=== PATIENT | male | born 1945 | race Caucasian/White ===

== ENCOUNTER 2017-03-19 07:35 | Inpatient (IN) | payer MEDICARE, OTHER ==
[~2017-03-19] VITALS: Ht 182.9 cm; Wt 109.3 kg
--- NOTE | 2017-03-19 07:45 | NUR ---
LINE STARTED ON R AC G 20, BLOOD DRAWN AND SENT TO LAB
--- NOTE | 2017-03-19 07:50 | NUR ---
RESPIRATORY THERAPIST AT BEDSIDE TO PLACE PT ON BIPAP SETTINGS: IPAP:25 EPAP:5 FIO2:40%
--- NOTE | 2017-03-19 07:51 | NUR ---
ANJALI MCDONALD EMT AT BEDSIDE FOR EKG
[2017-03-19 07:56] VITALS: BP 132/61
--- NOTE | 2017-03-19 08:06 | NUR ---
BIPAP SETTINGS: 25/5-12-30%
[2017-03-19 08:09] LABS: BASOPHILS % (AUTO) 0.2 % (0.0-2.0); EOSINOPHILS # (AUTO) 0.1 /CMM (0.0-0.7); EOSINOPHILS % (AUTO) 1.4 % (0.0-6.0); HEMATOCRIT 30 % (39-51); HEMOGLOBIN 9.1 g/dL (13.5-17.5); LYMPHOCYTES # (AUTO) 0.6 /CMM (0.8-4.8); LYMPHOCYTES % (AUTO) 9.2 % (20.0-44.0); MEAN CORPUSCULAR HEMOGLOBIN 21 PG (26.0-33.0); MEAN CORPUSCULAR HGB CONC 30 g/dl (31.0-36.0); MEAN CORPUSCULAR VOLUME 70 fL (80-96); MONOCYTES # (AUTO) 0.3 /CMM (0.1-1.30); MONOCYTES % (AUTO) 5.4 % (2.0-12.0); NEUTROPHILS # (AUTO) 5.3 /CMM (1.8-8.9); NEUTROPHILS % (AUTO) 83.8 % (43.0-81.0); PLATELET COUNT (AUTO) 230 /CMM (150-450); RDW COEFFICIENT OF VARIATION 20.2 (11.5-15.0); RED BLOOD CELL COUNT(AUTO) 4.32 MIL/uL (4.5-6.0); WHITE BLOOD COUNT (AUTO) 6.3 K/uL (4.3-11.0)
[2017-03-19] MEDS ORDERED: CARV12.52 PO (08:11)
[2017-03-19] MEDS ORDERED: TIOT18CA3 IH (08:11)
[2017-03-19] MEDS ORDERED: ALBU2.5V38 IH (08:11)
[2017-03-19] MEDS ORDERED: INSU100V7 SQ (08:11)
[2017-03-19] MEDS ORDERED: FLUT16SP16 NS (08:11)
[2017-03-19] MEDS ORDERED: RIVA10TA PO (08:11)
[2017-03-19] MEDS ORDERED: FLUT1DIS5 IH (08:11)
[2017-03-19] MEDS ORDERED: LISI10TA5 PO (08:11)
[2017-03-19] MEDS ORDERED: FURO-145 PO (08:11)
[2017-03-19] MEDS ORDERED: ATOR40TA PO (08:11)
[2017-03-19 08:21] LABS: CALCIUM, SERUM 8.4 mg/dL (8.5-10.1); CREATININE 1.2 mg/dL (0.6-1.3); POTASSIUM 4.7 mmol/L (3.5-5.1)
[2017-03-19 08:29] LABS: TROPONIN I 0.068 ng/mL (0.00-0.056)
[2017-03-19 08:34] LABS: ALBUMIN 3.5 g/dL (3.4-5.0); BILIRUBIN,DIRECT 0.2 mg/dL (0.0-0.2); BILIRUBIN,TOTAL 0.5 mg/dL (0.2-1.0); TOTAL PROTEIN, SERUM 6.9 g/dL (6.4-8.2)
--- NOTE | 2017-03-19 08:56 | NUR ---
Patient is resting comfortably in bed. VSS. All needs attended.
--- NOTE | 2017-03-19 09:04 | NUR ---
bipap dc'ed per dr portillo. pt's vs wnl. sating 99% on O2 2 l.
[2017-03-19 09:15] LABS: BAND % (MANUAL) 1 % (0.0-5.0); LYMPHOCYTES % (MANUAL) 7 % (16-48); MONOCYTES % (MANUAL) 1 % (0-11.0); NEUTROPHILS % (MANUAL) 91 (42-76)
--- NOTE | 2017-03-19 10:02 | NUR ---
Patient is resting comfortably in bed. VSS.
[2017-03-19 11:00] VITALS: BP 114/82
--- NOTE | 2017-03-19 11:00 | NUR ---
RN NOTES ADMITTED A 71Y/O M FROM ER WITH DX OF CHF, TRANSPORTED VIA STRETCHER ACCOMPANIED BY RN AND EMT. AWAKE ALERT ORIENTEDX3 ABLE TO COMMUNICATE NEEDS. ON O2@2LPM VIA NC, SATING 96%. TELEBOX ATTACHED NOTED SR ON TELE MONITOR HR 97 AT THIS TIME. VS TAKEN AND RECORDED. BODY CHECK DONE, NO MAJOR SKIN ISSUES NOTED. ORIENTED PT TO UNIT AND CALL LIGHT USE. URINAL PROVIDED AT BEDSIDE. HOB ELEVATED. CALL LIGHT WITHIN REACH WILL CONT TO MONITOR
[2017-03-19 12:03] LABS: IRON, SERUM 18 ug/dl (50-175); TOTAL IRON BINDING CAPACITY 373 ug/dl (250-450)
--- NOTE | 2017-03-19 17:45 | NUR ---
RN NOTES DR WEST AWARE OF LATEST TROPONIN 0.7, NO NEW ORDER GIVEN AT THIS TIME.
--- NOTE | 2017-03-19 19:30 | NUR ---
BRADLEY RN INITIAL NOTE RECEIVED REPORT FROM AISHA PAIZ. PT UP IN BED. PT IS UNKEMPT. APPEARS DYSPNIC WITH SPEECH, ON 2L NC. BOWEL SOUNDS PRESENT. PULSES PRESENT. IV PATENT AND INTACT. URINAL AT BEDSIDE. BED IN LOW LOCKED POSITION, CALL LIGHT WITHIN REACH. WILL CONTINUE TO MONITOR.
[2017-03-19 20:00] VITALS: BP 110/66
--- NOTE | 2017-03-19 22:10 | NUR ---
BRADLEY RN PT NOTED TO BE WITH DIFFICULTY BREATHING, ACCESSORY MUSCLE USE RR 38-40. PT SAYS HE FEELS HIS CHEST IS TIGHT AND SECRETIONS ARE DRY. ABG ORDERED.
[2017-03-19 22:38] LABS: ABG BASE EXCESS -3.1 mmol/L; ABG OXYGEN SATURATION 93.9 % (92.0-98.5); ABG PCO2 33.6 mmHg (35.0-45.0); ABG PH 7.412 (7.350-7.450); ABG PO2 74.1 mmHg (75.0-100.0); AaDO2 85.9 mmHg; COHb 0.8 % (0.5-1.5); MetHb 0.6 % (0.0-1.5); O2Hb 92.6 % (94.0-97.0); SITE, ABG Right Radial
--- NOTE | 2017-03-19 22:40 | NUR ---
BRADLEY RN PER RT- ABG NORMAL. WILL CALL AND NOTIFY DR POWELL AND REQUEST ORDERS. WILL CONTINUE TO MONITOR
--- NOTE | 2017-03-19 23:43 | NUR ---
BRADLEY RN DR UREÑA RETUTRNED CALLED. INFORMED HIM OF PATIENTS PRESENTATION. MENTIONED PT HAS A DRY PERSISTENT COUGH AND ON LISINOPRIL. PER DR UREÑA PLEASE CONTINUE LISINOPRIL AND GIVE ATIVAN 0.5MG Q6HR. WILL CONTINUE TO MONITOR.
[2017-03-20] VITALS: BP 100/52
--- NOTE | 2017-03-20 03:33 | NUR ---
BRADLEY RN REPORT GIVEN TO MELISSA FOR RITA. PT RESTING IN BED. ACCESSORY MUSCLE USE PRESENT, RR 24.
[2017-03-20 04:00] VITALS: BP 92/42
--- NOTE | 2017-03-20 07:00 | NUR ---
RN CLOSING NOTES PATIENT IN BED, AWAKE AND ALERT, ORIENTED. PATIENT STILL NOTED TO BE TACHYPNEIC WITH RR OF 24, ON 2LPM OF O2 VIA NC. PATIENT ENCOURAGED WITH REST PERIODS WITH ACTIVITY, ASSISTED WITH ADLS NEEDED. PROVIDED WITH REASSURANCE NEEDED. SAFETY AND COMFORT ENSURED. BED IN LOW AND LOCKED POSITION. CALL LIGHT IN REACH. NEEDS ANTICIPATED AND MET. ENDORSED ACCORDINGLY FOR CONTINUITY OF CARE.
[2017-03-20 07:16] LABS: EOSINOPHILS % (AUTO) 0.2 % (0.0-6.0); HEMATOCRIT 29 % (39-51); HEMOGLOBIN 8.8 g/dL (13.5-17.5); LYMPHOCYTES # (AUTO) 0.3 /CMM (0.8-4.8); LYMPHOCYTES % (AUTO) 3.6 % (20.0-44.0); MEAN CORPUSCULAR HEMOGLOBIN 21 PG (26.0-33.0); MEAN CORPUSCULAR HGB CONC 31 g/dl (31.0-36.0); MEAN CORPUSCULAR VOLUME 69 fL (80-96); MONOCYTES # (AUTO) 0.4 /CMM (0.1-1.30); MONOCYTES % (AUTO) 4.8 % (2.0-12.0); NEUTROPHILS # (AUTO) 6.6 /CMM (1.8-8.9); NEUTROPHILS % (AUTO) 91.4 % (43.0-81.0); PLATELET COUNT (AUTO) 209 /CMM (150-450); RDW COEFFICIENT OF VARIATION 19.6 (11.5-15.0); WHITE BLOOD COUNT (AUTO) 7.3 K/uL (4.3-11.0)
[2017-03-20 08:00] VITALS: BP 119/83
[2017-03-20 08:24] LABS: CREATININE 1.2 mg/dL (0.6-1.3); MAGNESIUM 2.1 mg/dL (1.8-2.4); PHOSPHORUS 4.1 mg/dL (2.5-4.9); POTASSIUM 5.6 mmol/L (3.5-5.1)
[2017-03-20 09:47] LABS: BAND % (MANUAL) 15 % (0.0-5.0); LYMPHOCYTES % (MANUAL) 7 % (16-48); MONOCYTES % (MANUAL) 6 % (0-11.0); NEUTROPHILS % (MANUAL) 72 (42-76)
[2017-03-20 12:00] VITALS: BP 106/66
[2017-03-20 16:00] VITALS: BP 108/65
--- NOTE | 2017-03-20 19:00 | NUR ---
RN NOTE PT REMAINED STABLE, ALL MEDS GIVEN, NEEDS METSPONGE BATH GIVEN, ADLS ASSISTED, PT AMBULATED TO BATHROOM, SAFETY MEASURES IMPLEMENTED, PT REMAINED STABLE THROUGHOUT SHIFT, WILL ENDORSE TO SHAPING MACHINE OPERATOR NURSE.
--- NOTE | 2017-03-20 19:20 | NUR ---
BRADLEY RN INITIAL NOTE RECEIVED REPORT FROM CLIF PAIZ. PT IN BED. A/A/O X4. LUNG SOUNDS CLEAR, PT HAS A DRY COUGH. ON 2L NC WITH GOOD SATURATION. BOWEL SOUNDS PRESENT. CONTINENT WITH BRP AND URINAL AT BEDSIDE. PULSES PRESENT. IV PATENT AND INTACT WITH IV FLUIDS RUNNING. BED IN LOW LOCKED POSITION. CALL LIGHT WITHIN REACH. WILL CONTINUE TO MONITOR.
[2017-03-20 20:00] VITALS: BP 119/63
--- NOTE | 2017-03-20 23:44 | NUR ---
SANDBLAST OR SHOTBLAST EQUIPMENT TENDER REPORT GIVEN DALTON PAIZ FOR RITA. PT STABLE AT THIS TIME. Addendum: 03/20/17 at 2346 by GERONIMO VAZQUEZ RN NOTE ON WRONG PT
[2017-03-21] VITALS: BP_SYST 104; BP_SYST 117; BP_DIAS 68; BP_DIAS 69
[2017-03-21 04:00] VITALS: BP 108/72
--- NOTE | 2017-03-21 07:15 | NUR ---
BRADLEY NOTE- RECEIVED PT A/O X4. ON ROOM AIR, RESPIRATIONS EVEN AND UNLABORED, NO SOB OR DISTRESS PRESENT. TELE MONITOR REVEALS SINUS RHYTHM, HR= 91. LEFT HAND 22G HL FLUSHED, PATENT AND INTACT RUNNING NS @ 100 MLS/HR. IV SITE FREE OF REDNESS, SWELLING AND INFLAMMATION. SAFETY MEASURES TAKEN: BED LOCKED AND IN LOW POSITION, SIDE RAILS UP X2, BED ALARM ON AND CALL LIGHT WITHIN REACH, WILL CONTINUE TO MONITOR.
[2017-03-21 07:17] LABS: EOSINOPHILS # (AUTO) 0.3 /CMM (0.0-0.7); EOSINOPHILS % (AUTO) 2.3 % (0.0-6.0); HEMATOCRIT 30 % (39-51); HEMOGLOBIN 9.1 g/dL (13.5-17.5); LYMPHOCYTES # (AUTO) 0.3 /CMM (0.8-4.8); MEAN CORPUSCULAR HEMOGLOBIN 21 PG (26.0-33.0); MEAN CORPUSCULAR HGB CONC 30 g/dl (31.0-36.0); MEAN CORPUSCULAR VOLUME 69 fL (80-96); MONOCYTES # (AUTO) 0.6 /CMM (0.1-1.30); MONOCYTES % (AUTO) 5.1 % (2.0-12.0); NEUTROPHILS # (AUTO) 9.8 /CMM (1.8-8.9); NEUTROPHILS % (AUTO) 89.6 % (43.0-81.0); PLATELET COUNT (AUTO) 250 /CMM (150-450); RDW COEFFICIENT OF VARIATION 20.1 (11.5-15.0); RED BLOOD CELL COUNT(AUTO) 4.36 MIL/uL (4.5-6.0); WHITE BLOOD COUNT (AUTO) 10.9 K/uL (4.3-11.0)
[2017-03-21 07:32] LABS: ALBUMIN 3.3 g/dL (3.4-5.0); BILIRUBIN,TOTAL 0.3 mg/dL (0.2-1.0); CREATININE 1.3 mg/dL (0.6-1.3); MAGNESIUM 2.3 mg/dL (1.8-2.4); PHOSPHORUS 4.9 mg/dL (2.5-4.9); POTASSIUM 4.7 mmol/L (3.5-5.1); TOTAL PROTEIN, SERUM 6.5 g/dL (6.4-8.2)
[2017-03-21 07:33] LABS: TROPONIN I 0.062 ng/mL (0.00-0.056)
[2017-03-21 08:00] VITALS: BP 117/71
[2017-03-21 09:03] LABS: BAND % (MANUAL) 2 % (0.0-5.0); EOSINOPHILS % (MANUAL) 1 % (0-4); LYMPHOCYTES % (MANUAL) 1 % (16-48); MONOCYTES % (MANUAL) 3 % (0-11.0); NEUTROPHILS % (MANUAL) 93 (42-76)
--- NOTE | 2017-03-21 10:00 | NUR ---
MS NOTE- PT C/O MILD SOB, PLACED ON 2L NC, SATURATING 96%. WILL CONTINUE TO MONITOR.
[2017-03-21 12:00] VITALS: BP 109/65
[2017-03-21 16:00] VITALS: BP 101/73
--- NOTE | 2017-03-21 19:10 | NUR ---
RN NOTES PATIENT AWAKE SITTING ON BED WATCHING TV AOX4 ABLE TO MAKE KNOWN NEEDS. AFEBRILE. NO RESP DISTRESS O2 2LPM VIA NC TOLERATED WELL WITH SATURATION 94%. PT IS AMBULATORY ABLE TO USED URINAL. ABLE TO USED BATHROOM FOR BOWEL. IV SITE ON LEFT HAND G 22 INTACT AND PATENT. CALL LIGHT KEPT WITHIN EASY REACH. WILL REMINDED TO USED WHEN NEEDED HELP/ASSISTANCE. KEPT OT CLEAN AND DRY.WILL CONTINUE TO MONITOR.
[2017-03-21 20:00] VITALS: BP 79/57
--- NOTE | 2017-03-21 21:47 | NUR ---
RN NOTES CALLED DR. POWELL INFORMED REGARDING PATIENT BP 79/57 REPEATED AFTER HOUR 79/53 MMHG. SATURATION 94%. PT IS ASYMPTOMATIC. WITH ORDER TO GIVE NS 500ML BOLUS AND REFER IT TO MD IN AM.
[2017-03-22 04:00] VITALS: BP 115/68
--- NOTE | 2017-03-22 07:02 | NUR ---
RN NOTES PATIENT ASLEEP WELL ON BED WOKE UP WHEN URINATING. NO ACUTE RESP. DISTRESS TOLERATED O2LPM VIA NC. NO COMPLAINED OF SOB. CONTINUE PLAN OF CARE. VS WNL AFTER GIVING IVF 500 ML. ASSISTED PROVIDED IN ADLS. KEPT PT CLEAN AND DRY. CALL LIGHT PROMPTLY ATTENDED. WILL ENDORSED CONTINUITY OF CARE TO AM NURSE.
[2017-03-22 07:24] LABS: EOSINOPHILS # (AUTO) 0.1 /CMM (0.0-0.7); EOSINOPHILS % (AUTO) 0.9 % (0.0-6.0); HEMATOCRIT 30 % (39-51); HEMOGLOBIN 9.2 g/dL (13.5-17.5); LYMPHOCYTES # (AUTO) 0.8 /CMM (0.8-4.8); LYMPHOCYTES % (AUTO) 8.6 % (20.0-44.0); MEAN CORPUSCULAR HEMOGLOBIN 21 PG (26.0-33.0); MEAN CORPUSCULAR HGB CONC 30 g/dl (31.0-36.0); MEAN CORPUSCULAR VOLUME 70 fL (80-96); MONOCYTES # (AUTO) 0.7 /CMM (0.1-1.30); MONOCYTES % (AUTO) 8.4 % (2.0-12.0); NEUTROPHILS # (AUTO) 7.2 /CMM (1.8-8.9); NEUTROPHILS % (AUTO) 82.1 % (43.0-81.0); PLATELET COUNT (AUTO) 223 /CMM (150-450); RDW COEFFICIENT OF VARIATION 20.1 (11.5-15.0); RED BLOOD CELL COUNT(AUTO) 4.34 MIL/uL (4.5-6.0); WHITE BLOOD COUNT (AUTO) 8.8 K/uL (4.3-11.0)
--- NOTE | 2017-03-22 07:50 | NUR ---
HOMICIDE DETECTIVE INITIAL NOTE PT IN BED. A/O X3. LUNG SOUNDS CLEAR, PT CURRENTLY RECEIVING BREATHING TREATMENT . ON 2L NC WITH GOOD SATURATION. BOWEL SOUNDS PRESENT. CONTINENT WITH BRP AND URINAL AT BEDSIDE. PULSES PRESENT. IV PATENT AND INTACT WITH IV FLUIDS RUNNING. BED IN LOW LOCKED POSITION. CALL LIGHT WITHIN REACH. RN WILL CONTINUE TO MONITOR THROUGHOUT THE DAY .
[2017-03-22 07:57] LABS: CALCIUM, SERUM 8.8 mg/dL (8.5-10.1); CREATININE 1.1 mg/dL (0.6-1.3); MAGNESIUM 2.3 mg/dL (1.8-2.4); PHOSPHORUS 4.1 mg/dL (2.5-4.9); POTASSIUM 4.6 mmol/L (3.5-5.1)
[2017-03-22 08:00] VITALS: BP 99/59
[2017-03-22 08:20] LABS: BAND % (MANUAL) 1 % (0.0-5.0); EOSINOPHILS % (MANUAL) 1 % (0-4); LYMPHOCYTES % (MANUAL) 9 % (16-48); MONOCYTES % (MANUAL) 7 % (0-11.0); NEUTROPHILS % (MANUAL) 82 (42-76)
--- NOTE | 2017-03-22 13:00 | NUR ---
RN NOTE RN SPOKE WITH PHARMACY IN REGARDS TO NEED FOR PATIENT GO- LYTLY STILL WAING ON MEDICATION ADMINISTRATION ,
--- NOTE | 2017-03-22 17:26 | NUR ---
RN NOTE RN SPOKE WITH PHARMACY IN REGARDS TO NEED FOR PATIENT GO- LYTLY STILL AWAITING MEDICATION ADMINISTRATION. PHARMACY STATES THE SENT MEDICATION HOWEVER RN NEVER RECEIVED MEDICATION RN STILL AWAITING CURRENTLY
--- NOTE | 2017-03-22 18:27 | NUR ---
GENERAL CLERK END OF SHIFT NOTE PT IN BED. A/O X3. DRINKING GO LYTLY PAT LUNG SOUNDS CLEAR, PT CURRENTLY RECEIVING BREATHING TREATMENT . ON 2L NC WITH GOOD SATURATION. BOWEL SOUNDS PRESENT. CONTINENT WITH BRP AND URINAL AT BEDSIDE 2000 CC OF FLUID TODAY. PT PULSES PRESENT. PATIENT ELIQUES HELD DUE TO EGD, AND COLONOSCOPY IN THE AM , ADONIAN PAGE TO NOTIFY OF THIS AND TO RECIEVE AND ORDER TO HOLD MEDICATION . IV PATENT AND INTACT WITH IV SL. BED IN LOW LOCKED POSITION. CALL LIGHT WITHIN REACH. RN WILL ENDORSE CARE FOR PM RN
--- NOTE | 2017-03-22 19:05 | NUR ---
RN NOTES PATIENT SITTING WHILE WATCHING TV ON BED AOX4 ABLE TO MAKE KNOWN NEEDS. NO RESP DISTRESS TOLERATED WELL WITH SATURATION 92% IN RA ENCOURAGED TO PLACED O2 VIA NC PT STATED THAT HHIS NOSE FEELS SO DRY WHEN HE PUT IT ON HUMIDIFIER PLACED RT ON BED SIDE EDUCATED PATIENT REGARDING THE USED OF HUMIDIFIER AND O2 TO HIS BODY. ENCOURAGED TO DRINK GOLYTELY EDUCATED REGARDING THE COLONOSCOPY AND EGD PROCEDURE PROCEDURE PT IS AMBULATORY ABLE TO USED URINAL. VERBALIZED UNDERSTANDING BUT EASILY FORGETS.IV SITE ON LEFT HAND G 22 INTACT AND PATENT. CALL LIGHT KEPT WITHIN EASY REACH. REMINDED TO USED WHEN NEEDED HELP/ASSISTANCE. KEPT PT CLEAN AND DRY.WILL CONTINUE TO MONITOR.
[2017-03-22 20:00] VITALS: BP 125/63
[2017-03-22 20:03] VITALS: BP 125/63
--- NOTE | 2017-03-22 22:23 | NUR ---
RN NOTES PATIENT ASLEEP AT THIS TIME. WOKE UP AND ENCOURAGED TO DRINK MORE GOLYTELY. PATIENT DRINK 1 MORE CUP ANS SAID THAT IT IS HIS LAST DRINK. EDUCATED PATIENT ABOUT THE PROCEDURE FOR THE SECOND TIME. PATIENT AWARE AND STILL REFUSED. WILL CONTINUE TO OFFER.
--- NOTE | 2017-03-22 23:00 | NUR ---
RN NOTES PATIENT USED URINAL, OFFERED AND ENCOURAGED TO DRINK MORE GOLYTELY, PT STILL REFUSED TO TAKE IT INSPITE OF EXPLAINING REGARDING THE PROCEDURE AND PATIENT DIDN'T DO ANY BOWEL YET AT THIS TIME. WILL CONTINUE TO MONITOR AND ENCOURAGED TO DRINK.
[2017-03-23 04:00] VITALS: BP 109/77
[2017-03-23 04:24] VITALS: BP 109/77
--- NOTE | 2017-03-23 06:52 | NUR ---
RN NOTES PT SITTING ON BED. WITH BREATHING TX GIVEN EARLY DUE TO UNABLE TO SPIT OUT SECRETION. NO SIGNIFICANT CHANGES SHOWS. AFEBRILE. ASSISTED TO THE BATHROOM WITH 2XL AMOUNT OF BROWNISH LIQUID STOOL . PT IS FOR EGD AND COLONOSCOPY PROCEDURE TODAY AT 2PM UNDER DR. TEJADA PATIENT IS AWARE. KEPT PT CLEAN AND DRY. ALL NEEDS ATTENDED. WILL ENDORSED CONTINUITY OF CARE TO AM NURSE.
[2017-03-23 07:23] LABS: EOSINOPHILS % (AUTO) 0.3 % (0.0-6.0); HEMATOCRIT 32 % (39-51); HEMOGLOBIN 9.6 g/dL (13.5-17.5); LYMPHOCYTES # (AUTO) 0.9 /CMM (0.8-4.8); MEAN CORPUSCULAR HEMOGLOBIN 21 PG (26.0-33.0); MEAN CORPUSCULAR HGB CONC 30 g/dl (31.0-36.0); MEAN CORPUSCULAR VOLUME 70 fL (80-96); MONOCYTES % (AUTO) 10.3 % (2.0-12.0); NEUTROPHILS # (AUTO) 7.6 /CMM (1.8-8.9); NEUTROPHILS % (AUTO) 80.4 % (43.0-81.0); PLATELET COUNT (AUTO) 256 /CMM (150-450); RDW COEFFICIENT OF VARIATION 20.3 (11.5-15.0); RED BLOOD CELL COUNT(AUTO) 4.54 MIL/uL (4.5-6.0); WHITE BLOOD COUNT (AUTO) 9.5 K/uL (4.3-11.0)
--- NOTE | 2017-03-23 07:26 | NUR ---
RN NOTES CALLED AND INFORMED DR. TEJADA REGARDING PATIENT OUTPUT AT THIS TIME. PER MD OK TO CONTINUE PREP UNTIL 11AM AND WITH NEW MEDS ORDER OF CITRATE 300 ML AND 2 FLEET ENEMA. NOTED ORDERS. WILL ENDORSED TO AM SHIFT
[2017-03-23 07:30] LABS: INR 1.05 (0.87-1.13); PROTHROMBIN TIME 11.3 SECS (9.5-12.7)
[2017-03-23 07:36] LABS: CALCIUM, SERUM 8.8 mg/dL (8.5-10.1); CREATININE 1.1 mg/dL (0.6-1.3); POTASSIUM 4.8 mmol/L (3.5-5.1)
[2017-03-23 08:00] VITALS: BP_SYST 111; BP_SYST 132; BP_DIAS 70; BP_DIAS 91
[2017-03-23 09:46] LABS: BAND % (MANUAL) 1 % (0.0-5.0); LYMPHOCYTES % (MANUAL) 6 % (16-48); MONOCYTES % (MANUAL) 7 % (0-11.0); NEUTROPHILS % (MANUAL) 86 (42-76)
[2017-03-23 16:00] VITALS: BP 115/88
[2017-03-23 20:00] VITALS: BP 132/75
--- NOTE | 2017-03-23 20:00 | NUR ---
RN NOTES RECEIVED PATIENT IN BED IN RM 115, AWAKE WITH NO COMPLAINTS OF PAIN OR DISCOMFORT. ALERT AND ORIENTED. NOTED WITH CONGESTION. ELEVATED HEAD OF BED. TRANSFERRED TO ROOM 120-2 SAFELY. VERBALLY ABLE TO COMMUNICATE NEEDS. AMBULATORY. CONTINENT OF BOWEL AND BLADDER FUNCTION. WILL CONTINUE TO MONITOR.
[2017-03-24 04:00] VITALS: BP 123/79
--- NOTE | 2017-03-24 07:00 | NUR ---
RN CLOSING NOTES IN BED, AWAKE WITH NO DISTRESS NOTED. ALERT AND ORIENTED. AMBULATORY. WALKS ALONG THE HALLWAY. NO COMPLAINT OF PAIN OR DISCOMFORT. WANTING TO BE DISCHARGED IN AM. NO SIGNIFICANT CHANGE OF CONDITION. KEPT CLEAN AND DRY. WILL ENDORSE TO AM SHIFT FOR CONTINUITY OF CARE
--- NOTE | 2017-03-24 07:30 | NUR ---
RN NOTES RECEIVED PATIENT IN BED ALERT, AWAKE, ORIENTED X3 WITH BREATHING NORMAL, EVEN AND UNLABORED. NO SOB NOTED. ON 2L O2 VIA NC, SATURATING WELL. NO ACUTE DISTRESS NOTED. IV L HAND IS PATENT AND INTACT, NO INFILTRATION NOTED. BOWEL SOUND PRESENT. PULSES PRESENT. PULSES PRESENT. SAFETY MEASURE OBSERVED. CALL LIGHT WITH IN REACH. WILL CONT TO MONITOR.
[2017-03-24 08:00] VITALS: BP 112/73
[2017-03-24 16:00] VITALS: BP 103/72
--- NOTE | 2017-03-24 19:14 | NUR ---
RN NOTES PATIENT ENDORSED TO NEXT SHIFT IN STABLE CONDITION FOR CONTINUITY OF CARE. NO SGNIFICANT CHANGES NOTED. KEPT CLEAN, DRY AND COMFORTABLE. ALL NEEDS ATTENDED. CALL LIGHT WITH IN REACH. WILL CONT TO MONITOR.
[2017-03-24 20:00] VITALS: BP 104/66
--- NOTE | 2017-03-24 20:00 | NUR ---
RN NOTES PATIENT IN BED WATCHING TV WITH NO DISTRESS NOTED. BREATHING EVEN AND UNLABORED. ON 02 VIA NASAL CANNULA AT 2LPM. NO COMPLAINT OF PAIN OR DISCOMFORT. ALERT AND ORIENTED, VERBALLY ABLE TO COMMUNICATE NEEDS. AMBULATORY. CONTINENT OF BOWEL AND BLADDER FUNCTION. WILL CONTINUE TO MONITOR.
[2017-03-25] VITALS: BP 100/58
--- NOTE | 2017-03-25 02:56 | NUR ---
RN NOTES CAME AND INQUIRED ABOUT DILANTIN. ACCORDING TO DILANTIN AND KEPPRA WERE GIVEN AT THE FACILITY, ASKING WHY DILANTIN WAS NOT GIVEN HERE AND ONLY KEPPRA. CALLED MD INSTRUCTIONAL DESIGN CONSULTANT DR. VALDEZ, RELAYED CONCERN OF THE AND ORDERED TO GIVE DILANTIN THE SAME DOSE AND FREQUENCY GIVEN AT THE FACILITY. NOTED AND CARRIED OUT. INFORMED OF THE DOCTOR'S ORDER. IS WORRIED IT MIGHT BE TOO MUCH. TOLD WILL RELAY YOUR CONCERN IN THE MORNING WITH THE DOCTOR.
[2017-03-25 04:00] VITALS: BP 134/80
--- NOTE | 2017-03-25 06:50 | NUR ---
RN CLOSING NOTES SLEEPING COMFORTABLY IN BED WITH NO DISTRESS NOTED. BREATHING EVEN AND UNLABORED. NO PHYSICAL MANIFESTATION OF PAIN OR DISCOMFORT. WITH POSSIBILITY OF DISCHARGE TODAY. NEEDS ATTENDED. KEPT CLEAN AND DRY. NO SIGNIFICANT CHANGE OF CONDITION. WILL ENDORSE TO AM SHIFT FOR CONTINUITY OF CARE.
[2017-03-25 07:25] LABS: EOSINOPHILS # (AUTO) 0.2 /CMM (0.0-0.7); EOSINOPHILS % (AUTO) 2.5 % (0.0-6.0); HEMATOCRIT 33 % (39-51); LYMPHOCYTES # (AUTO) 0.6 /CMM (0.8-4.8); LYMPHOCYTES % (AUTO) 9.2 % (20.0-44.0); MEAN CORPUSCULAR HEMOGLOBIN 22 PG (26.0-33.0); MEAN CORPUSCULAR HGB CONC 30 g/dl (31.0-36.0); MEAN CORPUSCULAR VOLUME 72 fL (80-96); MONOCYTES # (AUTO) 0.5 /CMM (0.1-1.30); MONOCYTES % (AUTO) 7.9 % (2.0-12.0); NEUTROPHILS # (AUTO) 5.4 /CMM (1.8-8.9); NEUTROPHILS % (AUTO) 80.4 % (43.0-81.0); PLATELET COUNT (AUTO) 228 /CMM (150-450); RDW COEFFICIENT OF VARIATION 20.2 (11.5-15.0); WHITE BLOOD COUNT (AUTO) 6.7 K/uL (4.3-11.0)
[2017-03-25 07:49] LABS: CREATININE 1.1 mg/dL (0.6-1.3)
[2017-03-25 08:00] VITALS: BP 141/85
--- NOTE | 2017-03-25 08:20 | NUR ---
MS RN RECEIVED ON BED,AWAKE,ALERT,ORIENTED X4,NOT IN ANY FORM OF DISTRESS,RESPIRATIONS EVEN UNLABORED,NO SOB NOTED.ABDOMEN SOFT,POSITIVE BOWEL SOUNDS, DENIES PAIN AT THIS TIME, WILL MONITOR PATIENT'S CONDITION.
[2017-03-25 08:29] LABS: MONOCYTES % (MANUAL) 6 % (0-11.0)
--- NOTE | 2017-03-25 08:30 | NUR ---
MS PAIZ BREAKFAST SERVED, DUE MEDS GIVEN,TOLERATED WELL.
[2017-03-25 08:35] LABS: BAND % (MANUAL) 1 % (0.0-5.0); NEUTROPHILS % (MANUAL) 79 (42-76)
[2017-03-25 08:36] LABS: EOSINOPHILS % (MANUAL) 2 % (0-4); LYMPHOCYTES % (MANUAL) 12 % (16-48)
--- NOTE | 2017-03-25 09:00 | NUR ---
MS RN BS - 144, REFUSED COVERAGE DUE TO PATIENT JUST ATE HIS BREAKFAST.
--- NOTE | 2017-03-25 14:00 | NUR ---
MS RN WAS SEEN BY SHANNAN GONZALES/ ORDERS MADE AND CARRIED OUT.
[2017-03-25 16:00] VITALS: BP_SYST 105; BP_SYST 125; BP_DIAS 63
--- NOTE | 2017-03-25 17:45 | NUR ---
MS RN ON BED, NO DISTRESS NOTED, WILL ENDORSE TO BIOINFORMATICS PROGRAMMER FOR CONTINUITY OF CARE.
[2017-03-25 20:00] VITALS: BP 82/51
--- NOTE | 2017-03-25 20:00 | NUR ---
RN NOTES RECEIVED PATIENT AWAKE IN BED WATCHING TV WITH NO RESPIRATORY DISTRESS OR SHORTNESS OF BREATH. BREATHING EVEN AND UNLABORED. COMPLAINED OF RIGHT AND LEFT HIP PAIN, ADMINISTERED MORPHINE 1MG, WITH RELIEF. ALERT AN ORIENTED. FC PATENT AND INTACT DRAINING CLEAR YELLOW WITH NO FOUL ODOR URINE.
[2017-03-26] VITALS: BP 116/79
[2017-03-26 04:00] VITALS: BP 114/74
--- NOTE | 2017-03-26 06:55 | NUR ---
RN CLOSING NOTES RESING COMFORTABLY IN BED WITH NO DISTRESS NOTED. NO COMPLAINT OF PAIN. INTERMITENTLY SLEEPING AND AWAKE. POSSIBLE DISCHARGE TODAY. VITAL SIGNS WNL. WILL ENDORSE TO AM SHIFT FOR CONTINUITY OF CARE
[2017-03-26 08:00] VITALS: BP 121/73
--- NOTE | 2017-03-26 08:00 | NUR ---
MS PAIZ AM NOTES RECEIVED PATIENT IN BED ALERT, AWAKE, ORIENTED X3 WITH BREATHING NORMAL, EVEN AND UNLABORED. NO SOB NOTED. ON 2L O2 VIA NC, SATURATING WELL. NO ACUTE DISTRESS NOTED. L HAND AND RT FA H/L IS PATENT AND INTACT, NO INFILTRATION NOTED. BOWEL SOUND PRESENT. PULSES PRESENT. PULSES PRESENT. SAFETY MEASURE OBSERVED. CALL LIGHT WITH IN REACH. WILL CONT TO MONITOR.
[2017-03-26 08:09] LABS: BASOPHILS % (AUTO) 0.1 % (0.0-2.0); EOSINOPHILS # (AUTO) 0.2 /CMM (0.0-0.7); HEMATOCRIT 33 % (39-51); HEMOGLOBIN 10.1 g/dL (13.5-17.5); LYMPHOCYTES # (AUTO) 0.9 /CMM (0.8-4.8); MEAN CORPUSCULAR HEMOGLOBIN 22 PG (26.0-33.0); MEAN CORPUSCULAR HGB CONC 30 g/dl (31.0-36.0); MEAN CORPUSCULAR VOLUME 73 fL (80-96); MONOCYTES # (AUTO) 0.9 /CMM (0.1-1.30); MONOCYTES % (AUTO) 8.7 % (2.0-12.0); NEUTROPHILS # (AUTO) 8.7 /CMM (1.8-8.9); NEUTROPHILS % (AUTO) 81.2 % (43.0-81.0); PLATELET COUNT (AUTO) 205 /CMM (150-450); RDW COEFFICIENT OF VARIATION 20.2 (11.5-15.0); RED BLOOD CELL COUNT(AUTO) 4.53 MIL/uL (4.5-6.0); WHITE BLOOD COUNT (AUTO) 10.7 K/uL (4.3-11.0)
[2017-03-26 08:32] LABS: CALCIUM, SERUM 8.4 mg/dL (8.5-10.1); CREATININE 1.1 mg/dL (0.6-1.3)
[2017-03-26 09:29] LABS: EOSINOPHILS % (MANUAL) 2 % (0-4); LYMPHOCYTES % (MANUAL) 8 % (16-48); MONOCYTES % (MANUAL) 10 % (0-11.0); NEUTROPHILS % (MANUAL) 80 (42-76)
[2017-03-26 09:38] VITALS: BP 121/73
[2017-03-26] MEDS ORDERED: FLUC100T8 PO (11:57)
--- NOTE | 2017-03-26 15:30 | NUR ---
DISCHARGE INSTRUCTIONS,MED RECONCILIATION,MED AND HEALTH TEACHING GIVEN TO THE PT.IV H/L TO LT HAND AND RFA REMOVED WITHOUT BLEEDING NOTED.DISCHARGED PT WITH STABLE V/S,ACCOMPANIED BY NEPHEW VIA PRIVATE CAR.PT WAS IN A JETT TO GO HOME.
== END 2017-03-26 15:27 | disposition home health service (06) | DRG 280 ==
LOC: ER 07:38 → TELE-TD 10:27 → TELE1 03-21 10:49 → MEDSG1 03-21 11:21
PROVIDERS: ADMIT Internal Medicine; ATTEND Internal Medicine
PROC: 0DBH8ZZ Excision of Cecum, Via Natural or Artificial Opening Endoscopic (ICD-10-PCS; 2017-03-23)
PROC: 0DBL8ZZ Excision of Transverse Colon, Via Natural or Artificial Opening Endoscopic (ICD-10-PCS; 2017-03-23)
PROC: 0DBM8ZZ Excision of Descending Colon, Via Natural or Artificial Opening Endoscopic (ICD-10-PCS; 2017-03-23)
PROC: 0DB58ZX Excision of Esophagus, Via Natural or Artificial Opening Endoscopic, Diagnostic (ICD-10-PCS; principal; 2017-03-23 15:30)
PROC: 0DB68ZX Excision of Stomach, Via Natural or Artificial Opening Endoscopic, Diagnostic (ICD-10-PCS; 2017-03-23 15:30)
DX: I11.0 Hypertensive heart disease with heart failure (principal); I21.4 Non-ST elevation (NSTEMI) myocardial infarction; J96.01 Acute respiratory failure with hypoxia; J44.0 Chronic obstructive pulmonary disease with (acute) lower respiratory infection; E11.65 Type 2 diabetes mellitus with hyperglycemia; B37.81 Candidal esophagitis; E44.1 Mild protein-calorie malnutrition; J44.1 Chronic obstructive pulmonary disease with (acute) exacerbation; R13.10 Dysphagia, unspecified; D50.9 Iron deficiency anemia, unspecified; F17.210 Nicotine dependence, cigarettes, uncomplicated; D63.8 Anemia in other chronic diseases classified elsewhere; E78.5 Hyperlipidemia, unspecified; E66.9 Obesity, unspecified; K29.70 Gastritis, unspecified, without bleeding; K21.9 Gastro-esophageal reflux disease without esophagitis; J20.9 Acute bronchitis, unspecified; Z68.32 Body mass index [BMI] 32.0-32.9, adult; Z79.01 Long term (current) use of anticoagulants; E87.5 Hyperkalemia; E88.09 Other disorders of plasma-protein metabolism, not elsewhere classified; K64.8 Other hemorrhoids; K57.30 Diverticulosis of large intestine without perforation or abscess without bleeding; K63.5 Polyp of colon; Z99.81 Dependence on supplemental oxygen; I50.23 Acute on chronic systolic (congestive) heart failure
CPT/HCPCS: 36415; 36600; 71010-TC; 80048-TC; 80053-TC; 80061-TC; 80076-TC; 82962-TC; 83540-TC; 83735-TC; 83880; 84100-TC; 84484-TC; 85025-TC; 85610-TC; 85730-TC; 87040-TC; 87081-TC; 88305-TC; 88312-TC; 88313-TC; 88342; 93307-TC; 94660; 94799-TC; 97116-TC; 97530-TC; A4216; A4606; A6403; J1815; J1940; J1956; J2001; J2060; J2704; J2916; J2930; J3490; J7030; J7040; J7050; Z7610

== ENCOUNTER 2017-04-15 10:17 | Inpatient (IN) | payer MEDICARE, OTHER ==
[2017-04-15] VITALS (27 sets, daily range): BP systolic 77–144; BP diastolic 54–93
[~2017-04-15] VITALS: Ht 182.9 cm; Wt 98.9 kg
[~2017-04-15 10:17] MED LIST: ALBU2.5V38 IH; ATOR40TA PO; CARV12.52 PO; FLUC100T8 PO; FLUT16SP16 NS; FLUT1DIS5 IH; FURO-145 PO; INSU100V7 SQ; LISI10TA5 PO; RIVA10TA PO; TIOT18CA3 IH
[2017-04-15] MEDS ORDERED: IPRATROPIUM NEB FS 0.5 MG/2.5 ML AMPUL.NEB ONE (10:20)
[2017-04-15] MEDS ORDERED: ALBUTEROL FS 2.5 MG/3 ML VIAL.NEB ONE ×2 (10:20→11:01)
--- NOTE | 2017-04-15 10:20 | NUR ---
NATACHA FISH FROM HOME D/T RESPIRATORY DISTRESS. PATIENT SHORT OF BREATH, ARRIVED ON CPAP. VITALS STABLE, RT AT BEDSIDE, NON REBREATHER APPLIED WITH BREATHING TREATMENT PER MD. SATURATION WNL. SAFETY AND COMFORT MEASURES IN PLACE. AWAITING FURTHER ORDERS.
--- NOTE | 2017-04-15 10:25 | NUR ---
NEW IV STARTED ON LAC, 20 G. BLOOD DRAWN AND SENT TO LAB.
[2017-04-15] MEDS ORDERED: ALBUTEROL FS 2.5 MG/3 ML VIAL.NEB NEB ONE ×2 (10:30→11:00)
[2017-04-15] MEDS ORDERED: IPRATROPIUM NEB FS 0.5 MG/2.5 ML AMPUL.NEB NEB ONE (10:30)
[2017-04-15] MEDS ORDERED: FUROSEMIDE 40 MG/4 ML VIAL IV ONE (10:30)
[2017-04-15] MEDS ORDERED: NITROGLYCERIN PACKET 1 GM PACKET TD ONE (10:30)
[2017-04-15] MEDS ORDERED: FUROSEMIDE 40 MG/4 ML VIAL ONE (10:31)
[2017-04-15] MEDS ORDERED: NITROGLYCERIN PACKET 1 GM PACKET ONE (10:31)
--- NOTE | 2017-04-15 10:36 | NUR ---
PATIENT MEDICATED PER MD ORDERS.
[2017-04-15 10:38] LABS: BASOPHILS % (AUTO) 0.1 % (0.0-2.0); HEMOGLOBIN 10.9 g/dL (13.5-17.5); LYMPHOCYTES # (AUTO) 0.3 /CMM (0.8-4.8); MONOCYTES # (AUTO) 0.4 /CMM (0.1-1.30)
--- NOTE | 2017-04-15 10:40 | NUR ---
SECOND IV STARTED ON RIGHT HAND, 20 G.
--- NOTE | 2017-04-15 10:41 | NUR ---
CONSULTING SALES MANAGER AT BEDSIDE.
[2017-04-15 10:49] LABS: EOSINOPHILS % (AUTO) 0.4 % (0.0-6.0); HEMATOCRIT 35 % (39-51); LYMPHOCYTES % (AUTO) 4.5 % (20.0-44.0); MEAN CORPUSCULAR HEMOGLOBIN 23 PG (26.0-33.0); MEAN CORPUSCULAR HGB CONC 31 g/dl (31.0-36.0); MEAN CORPUSCULAR VOLUME 73 fL (80-96); MONOCYTES % (AUTO) 6.5 % (2.0-12.0); NEUTROPHILS # (AUTO) 5.6 /CMM (1.8-8.9); NEUTROPHILS % (AUTO) 88.5 % (43.0-81.0); PLATELET COUNT (AUTO) 239 /CMM (150-450); RDW COEFFICIENT OF VARIATION 23.1 (11.5-15.0); RED BLOOD CELL COUNT(AUTO) 4.84 MIL/uL (4.5-6.0); WHITE BLOOD COUNT (AUTO) 6.3 K/uL (4.3-11.0)
--- NOTE | 2017-04-15 10:51 | NUR ---
RT AT BEDSIDE, BIPAP APPLIED PER MD ORDERS .
[2017-04-15] MEDS ORDERED: methylPREDNISolone SOD SUCC 125 MG/2ML VIAL IV ONE (11:00)
--- NOTE | 2017-04-15 11:01 | NUR ---
ICU 253
--- NOTE | 2017-04-15 11:05 | NUR ---
Paged [facility] --- aluminum fabrication supervisor is Dr Marx. Waiting for return call.
--- NOTE | 2017-04-15 11:07 | NUR ---
REPORT GIVEN TO MINDY PAIZ FOR ADMISSION.
[2017-04-15] MEDS ORDERED: AZITHROMYCIN 500 MG in IV D5W 250 ML IV ONE (11:30)
[2017-04-15] MEDS ORDERED: methylPREDNISolone SOD SUCC 125 MG/2ML VIAL ONE (11:35)
[2017-04-15 11:36] LABS: INR 1.04 (0.87-1.13); PROTHROMBIN TIME 10.8 SECS (9.5-12.7)
[2017-04-15 11:37] LABS: TROPONIN I 0.073 ng/mL (0.00-0.056)
[2017-04-15 11:38] LABS: BILIRUBIN,DIRECT 0.3 mg/dL (0.0-0.2); BILIRUBIN,TOTAL 0.6 mg/dL (0.2-1.0); CALCIUM, SERUM 8.6 mg/dL (8.5-10.1); CREATININE 1.1 mg/dL (0.6-1.3); POTASSIUM 3.8 mmol/L (3.5-5.1)
[2017-04-15 11:39] LABS: ALBUMIN 3.6 g/dL (3.4-5.0); TOTAL PROTEIN, SERUM 7.1 g/dL (6.4-8.2)
[2017-04-15] MEDS ORDERED: ASPIRIN 81 MG TAB.CHEW PO STA (11:43)
[2017-04-15] MEDS ORDERED: ASPIRIN 81 MG TAB.CHEW ONE (11:45)
--- NOTE | 2017-04-15 12:00 | NUR ---
icu initial note received report from er, pt was received awake, able to make needs known, able to follow commands, pt is able to move all extremities, pt was placed on bedside monitor showing sr @ 97bpm, no c/o of chest pain or discomfort at this time, pt was placed on bipap 15/5 rate 12 fio2 30%, sating 100%, pt is labored but even, crackles in all valderrama, pt has lac # 20g, running azithromycin, r hand # 20g, c/d/i/patent, flushing well, no s/s of infection/ infiltration noted, pt is noted with multiple skin issues, photos taken and in chart, pt belongings at bedside, pt verbalized he wants everything done, pt wishes to be full code, pt given bed bath, pt uses urinal but requested for a cardozo catheter to be inserted, awaiting md orders, pt stated he lives at home with brother but takes care of himself, all safety measures in place at all times, call light within easy reach, will monitor pt closely for changes
--- NOTE | 2017-04-15 12:07 | NUR ---
PATIENT TRANSFERRED TO ICU 253 VIA ACLS PROTOCOL. MINDY PAZI TO PROVIDE RITA.
[2017-04-15] MEDS ORDERED: INSULIN GLARGINE HUM REC ANLOG 90 UNIT SQ SCH (12:30)
[2017-04-15 12:35] LABS: LYMPHOCYTES % (MANUAL) 8 % (16-48); MONOCYTES % (MANUAL) 3 % (0-11.0); NEUTROPHILS % (MANUAL) 89 (42-76)
--- NOTE | 2017-04-15 12:36 | NUR ---
icu note paged for admission orders, awaiting call back
[2017-04-15 12:55] LABS: ABG BASE EXCESS -4.5 mmol/L; ABG OXYGEN SATURATION 96.8 % (92.0-98.5); ABG PCO2 39.8 mmHg (35.0-45.0); ABG PH 7.339 (7.350-7.450); ABG PO2 101.1 mmHg (75.0-100.0); MetHb 0.7 % (0.0-1.5); O2Hb 95.2 % (94.0-97.0); SITE, ABG Right Radial; VENT MODE, BG BIPAP 15/5
[2017-04-15] MEDS ORDERED: MAG HYDROX/AL HYDROX/SIMETH 30 ML UDC PO PRN (13:00)
[2017-04-15] MEDS ORDERED: ZOLPIDEM TARTRATE 5 MG TABLET PO PRN (13:00)
[2017-04-15] MEDS ORDERED: ONDANSETRON HCL/PF 4 MG/2 ML VIAL IVP PRN (13:00)
[2017-04-15] MEDS ORDERED: FUROSEMIDE 40 MG/4 ML VIAL IV SCH (13:30)
--- NOTE | 2017-04-15 14:01 | NUR ---
WOUND CARE CONSULT PATIENT SEEN AND SKIN INTEGRITY ASSESSMENT DONE. PATIENT PRESENTS WITH BILATERAL ELBOW DRY SKIN, BILATERAL FEET WITH LONG NAILS, THICKENED HARD BROWN SKIN TO BILATERAL HEELS, AND FEET ARE NOTED TO BE DIRTY. PATIENT ALSO PRESENTS WITH RIGHT LATERAL SMALL TOE SCAB THAT MEASURES 0.4CM X 0.4CM X UTD INTACT NO S/S OF INFECTION. PER PATIENT HE DOES HAVE A PRESIDENT OF [place] THAT HE SEES OCCASIONALLY. RECOMMEND PODIATRY CONSULT FOR NAIL CARE AND EVALUATION OF THE ESCHAR TO THE RIGHT LATERAL SMALL TOE. PATIENT HAS NO OTHER OPEN WOUNDS AND BLANCHABLE REDNESS TO BUTTOCKS AND SACRAL REGION AT THIS TIME. PATIENT IS CURRENTLY INDEPENDENT WITH BED MOBILITY AND WILL BE PLACED ON BED WITH REM GEL FOAM PRESSURE REDISTRIBUTION MATTRESS. ALL SKIN MANAGEMENT DISCUSSED WITH NURSING AT THE BEDSIDE. RECOMMEND VITAMIN A+D OINTMENT TO BILATERAL LOWER EXTREMITIES AND HEELS FOR SEVERELY DRY SKIN ALSO APPLY TO BILATERAL ELBOWS. PATIENT WITH CURRENT PAULA AT 18.
--- NOTE | 2017-04-15 14:08 | NUR ---
icu note dr. villalpando at bedside, aware of all labs and results furnace room supervisor made rounds, skin check done. all new orders ack and will be carried out
[2017-04-15] MEDS: ATORVASTATIN 40 MG TABLET PO SCH (14:16)
[2017-04-15] MEDS: methylPREDNISolone SOD SUCC 40 MG/ML VIAL IV SCH ×2 (14:16→17:09)
[2017-04-15] MEDS: LISINOPRIL (10MG) 10 MG TABLET PO SCH (14:17)
[2017-04-15] MEDS: Z GUARD REMEDY 2 OZ OINT TP PRN (14:17)
[2017-04-15] MEDS: FLUTICASONE PROPIONATE 16 GM BOTTLE NS SCH (14:17)
--- NOTE | 2017-04-15 14:42 | NUR ---
icu note cardozo catheter insert per pt requested, aware
[2017-04-15] MEDS ORDERED: BUMETANIDE INJ 8 MG in IV NS 0.9% 48 ML IV ONE (15:00)
[2017-04-15] MEDS: POTASSIUM CHLORIDE 20 MEQ TAB.PRT.SR PO SCH ×2 (15:34→16:00)
[2017-04-15] MEDS: VITAMINS A AND D 56.7 GM TUBE TP SCH (15:34)
--- NOTE | 2017-04-15 16:00 | NUR ---
icu note pt requested to be taken off bipap, pt was place on 3l nc, tolerating well, told pt to notify us when he wants to go back on bipap, educated pt if having a hard time he will be placed back on bipap, pt understands.
[2017-04-15] MEDS ORDERED: FLUTICASONE/SALMETEROL DISKUS IH SCH (17:00)
[2017-04-15] MEDS: RIVAROXABAN 10 MG TABLET PO SCH (17:09)
[2017-04-15] MEDS ORDERED: POTASSIUM CHLORIDE 20 MEQ TAB.PRT.SR PO SCH (18:00)
--- NOTE | 2017-04-15 18:57 | NUR ---
ICU NOTE PT REQUESTED TO BE PLACED BACK ON BIPAP, RT AT BEDSIDE
[2017-04-15] MEDS ORDERED: DEXTROSE 50%-WATER 50 ML DISP.SYRIN IV PRN (19:30)
--- NOTE | 2017-04-15 19:41 | NUR ---
TRANSPORTER DRIVER. INITIAL ASSESSMENT. RECEIVED THE PT REST ON THE BED. AWAKE, ALERT, FOLLOW COMMANDS. RIFFLER TENDER SHOWING NSR. BIPAP ON SETTINGS 15/5,RATE 12, FIO2 30%. SAT 98%. RIFFLER TENDER SHOWING NSR. IV RT HAND 20G. HOB ELEVATED. TURN AND REPOSITION PT IS INDEPENDENT . WILL CONTINUE TO MONITOR VITALS.
[2017-04-15] MEDS: INSULIN DETEMIR 100 UNIT/ML CARTRIDGE SQ SCH (22:00)
[2017-04-15] MEDS ORDERED: INSULIN DETEMIR 100 UNIT/ML CARTRIDGE SQ SCH (22:00)
[2017-04-15] MEDS: BLOOD SUGAR DIAGNOSTIC 1 EACH STRIP IN SCH (22:03)
--- NOTE | 2017-04-15 23:06 | NUR ---
ASSEMBLER FLUORESCENT LIGHTS NILESH NOT GIVEN. BLOOD SUGAR 73. WILL CONTINUE TO MONITOR.
[2017-04-15] MEDS ORDERED: NOREPINEPHRINE 16 MG in IV D5W 500 ML IV PRN (23:30)
[2017-04-15] MEDS ORDERED: NOREPINEPHRINE 4 MG/4 ML AMPUL IV ONE ×3 (23:37→23:40)
[2017-04-16] VITALS (49 sets, daily range): BP systolic 87–146; BP diastolic 49–79
--- NOTE | 2017-04-16 00:29 | NUR ---
CULINARY ART TEACHER. MID LINE INSERTED JENNY PAIZ. DURING PLACEMENT NO COMPLICATION NOTED.WILL CONTINUE TO MONITOR VITALS.
--- NOTE | 2017-04-16 00:31 | NUR ---
WATCH REPAIR TECHNICIAN, BLOOD PRESSURE 77/50. MANUAL BP TAKEN STILL BLOOD PRESSURE LOW. X3 CALLED DR ADELITA RHODES STARTED. WILL CONTINUE TO MONITOR.
--- NOTE | 2017-04-16 03:54 | NUR ---
SENIOR REGULATORY AFFAIRS SPECIALIST. AM CARE. ORAL CARE, BED BATH GIVEN. LINEN CHANGED. REMAINING SAME BIPAP ON. IV RT UPPER ARM MID LINE. SALINE LOCK. AFEBRILE. DETECTIVE NARCOTICS AND VICE SHOWING S TACH. RATE IS AT THIS TIME 102. HOB ELEVATED, FC PATENT. URINE DRAINING, WILL CONTINUE TO MONITOR VITALS,
[2017-04-16 04:34] LABS: EOSINOPHILS % (AUTO) 0.2 % (0.0-6.0); HEMATOCRIT 36 % (39-51); HEMOGLOBIN 11.1 g/dL (13.5-17.5); LYMPHOCYTES # (AUTO) 0.5 /CMM (0.8-4.8); LYMPHOCYTES % (AUTO) 7.3 % (20.0-44.0); MEAN CORPUSCULAR HEMOGLOBIN 23 PG (26.0-33.0); MEAN CORPUSCULAR HGB CONC 31 g/dl (31.0-36.0); MEAN CORPUSCULAR VOLUME 73 fL (80-96); MONOCYTES # (AUTO) 0.2 /CMM (0.1-1.30); MONOCYTES % (AUTO) 3.5 % (2.0-12.0); NEUTROPHILS # (AUTO) 6.1 /CMM (1.8-8.9); PLATELET COUNT (AUTO) 241 /CMM (150-450); RDW COEFFICIENT OF VARIATION 25.1 (11.5-15.0); RED BLOOD CELL COUNT(AUTO) 4.91 MIL/uL (4.5-6.0); WHITE BLOOD COUNT (AUTO) 6.8 K/uL (4.3-11.0)
[2017-04-16 04:50] LABS: ALBUMIN 3.1 g/dL (3.4-5.0); BILIRUBIN,TOTAL 0.7 mg/dL (0.2-1.0); CALCIUM, SERUM 8.6 mg/dL (8.5-10.1); CREATININE 1.3 mg/dL (0.6-1.3); MAGNESIUM 1.4 mg/dL (1.8-2.4); PHOSPHORUS 5.1 mg/dL (2.5-4.9); TOTAL PROTEIN, SERUM 6.4 g/dL (6.4-8.2)
[2017-04-16 04:57] LABS: THYROID STIMULATING HORMONE 0.809 uIU/mL (0.358-3.74)
[2017-04-16 05:04] LABS: LYMPHOCYTES % (MANUAL) 10 % (16-48); MONOCYTES % (MANUAL) 3 % (0-11.0); NEUTROPHILS % (MANUAL) 87 (42-76)
[2017-04-16] MEDS: ALBUTEROL FS 2.5 MG/3 ML VIAL.NEB IH PRN ×2 (05:13→11:02)
--- NOTE | 2017-04-16 07:00 | NUR ---
icu initial note received pt awake, able to make needs known, able to follow commands, pt is able to move all extremities, pt is on bedside monitor showing sr in 90's, no c/o of chest pain or discomfort at this time, pt on bipap 15/5 rate 12 fio2 40%, sating well, pt is labored but even, crackles/wheezing in all valderrama, pt has lac # 20g, sl, r hand # 20g, gabriela midline # 18g, c/d/i/patent, flushing well, no s/s of infection/ infiltration noted, pt is noted with multiple skin issues, wound care will be carried out, pt has f/c draining yellow urine to gravity, pt stated he wants to eat, all safety measures in place at all times, call light within easy reach, will monitor pt closely for changes
--- NOTE | 2017-04-16 07:10 | NUR ---
icu note dr. villalpando made rounds, aware all of labs and results, all new orders ack and will be carried out
[2017-04-16] MEDS ORDERED: BUMETANIDE INJ 8 MG in IV NS 0.9% 48 ML IV ONE (08:00)
[2017-04-16] MEDS: VITAMINS A AND D 56.7 GM TUBE TP SCH (08:13)
[2017-04-16] MEDS: FLUTICASONE/VILANTEROL 1 EACH BLST.W.DEV IH SCH (08:13)
[2017-04-16] MEDS: ATORVASTATIN 40 MG TABLET PO SCH (08:13)
[2017-04-16] MEDS: FLUTICASONE PROPIONATE 16 GM BOTTLE NS SCH (08:13)
[2017-04-16] MEDS: LISINOPRIL (10MG) 10 MG TABLET PO SCH (08:13)
[2017-04-16] MEDS: methylPREDNISolone SOD SUCC 40 MG/ML VIAL IV SCH ×3 (08:13→17:20)
[2017-04-16] MEDS: Z GUARD REMEDY 2 OZ OINT TP PRN (08:14)
[2017-04-16] MEDS: BLOOD SUGAR DIAGNOSTIC 1 EACH STRIP IN SCH ×4 (08:14→21:40)
--- NOTE | 2017-04-16 09:34 | NUR ---
ICU NOTE DR. PASCUAL MADE ROUNDS, AWARE OF ALL LABS AND RESULTS. ALL NEW ORDERS ACK
[2017-04-16] MEDS ORDERED: Magnesium 1GM/D5W 100ML PREMIX PIGGYBACK IV ONE (10:00)
[2017-04-16] MEDS: Magnesium 1GM/D5W 100ML PREMIX 100 ML IV SCH ×2 (10:23→11:26)
[2017-04-16] MEDS: IPRATROPIUM NEB FS 0.5 MG/2.5 ML AMPUL.NEB NEB SCH ×3 (11:00→19:53)
[2017-04-16] MEDS: INSULIN REGULAR, HUMAN 100 UNIT/ML 3 ML VIAL SQ PRN ×3 (11:40→22:23)
--- NOTE | 2017-04-16 12:00 | NUR ---
icu note 2gm of mag was replaced
[2017-04-16] MEDS ORDERED: GUAIFENESIN LA 600 MG TABLET.SA PO ONE (13:00)
--- NOTE | 2017-04-16 13:00 | NUR ---
icu note full bed bath given, all treatments carried out
--- NOTE | 2017-04-16 15:00 | NUR ---
icu note pt breathing became more labored, pt o2 in 80's, pt was placed back on bipap 15/5 rate 12 fio2 40%
--- NOTE | 2017-04-16 15:15 | NUR ---
icu note received call from lab pt is positive for mrsa nares, bactroban ordered, isolation precautions observed
[2017-04-16] MEDS: RIVAROXABAN 10 MG TABLET PO SCH (17:22)
--- NOTE | 2017-04-16 19:30 | NUR ---
CARDIAC NURSE PRACTITIONER INITIAL NOTE RECEIVED REPORT FROM MINDY PAIZ. PT IN BED. A/A/O X4. LUNG SOUNDS CRACKLES. BOWEL SOUNDS PRESENT. BRONSON INTACT AND DRAINING URINE. IV PATENT AND INTACT. PULSES PRESENT. BED IN LOW LOCKED POSITION. CALL LIGHT WITHIN REACH. WILL CONTINUE TO MONITOR.
[2017-04-16] MEDS: MUPIROCIN OINT 2% 22 GM TUBE SCH (21:00)
[2017-04-16] MEDS: GUAIFENESIN LA 600 MG TABLET.SA PO SCH (21:40)
[2017-04-16] MEDS: INSULIN DETEMIR 100 UNIT/ML CARTRIDGE SQ SCH (21:42)
[2017-04-17] VITALS (26 sets, daily range): BP systolic 91–134; BP diastolic 19–82
--- NOTE | 2017-04-17 01:00 | NUR ---
TWISTING MACHINE OPERATOR PT IN BED. ON BIPAP, TOLERATING SETTINGS. SLEEPING, ABLE TO REPOSITION SELF IN BED. BED IN LOW LOCKED POSITION. CALL LIGHT WITHIN REACH.WILL CONTINUE TO MONITOR.
[2017-04-17] MEDS: IPRATROPIUM NEB FS 0.5 MG/2.5 ML AMPUL.NEB NEB SCH ×4 (01:53→19:47)
[2017-04-17] MEDS: ALBUTEROL FS 2.5 MG/3 ML VIAL.NEB IH PRN ×3 (03:47→14:08)
[2017-04-17 04:50] LABS: EOSINOPHILS # (AUTO) 0.1 /CMM (0.0-0.7); NEUTROPHILS # (AUTO) 5.9 /CMM (1.8-8.9)
[2017-04-17 05:09] LABS: EOSINOPHILS % (AUTO) 1.1 % (0.0-6.0); HEMATOCRIT 37 % (39-51); HEMOGLOBIN 11.4 g/dL (13.5-17.5); LYMPHOCYTES # (AUTO) 0.3 /CMM (0.8-4.8); LYMPHOCYTES % (AUTO) 4.7 % (20.0-44.0); MEAN CORPUSCULAR HEMOGLOBIN 22 PG (26.0-33.0); MEAN CORPUSCULAR HGB CONC 31 g/dl (31.0-36.0); MEAN CORPUSCULAR VOLUME 72 fL (80-96); MONOCYTES # (AUTO) 0.6 /CMM (0.1-1.30); MONOCYTES % (AUTO) 8.3 % (2.0-12.0); NEUTROPHILS % (AUTO) 85.9 % (43.0-81.0); PLATELET COUNT (AUTO) 252 /CMM (150-450); RDW COEFFICIENT OF VARIATION 24.2 (11.5-15.0); RED BLOOD CELL COUNT(AUTO) 5.16 MIL/uL (4.5-6.0); WHITE BLOOD COUNT (AUTO) 6.9 K/uL (4.3-11.0)
[2017-04-17 05:19] LABS: ALBUMIN 3.1 g/dL (3.4-5.0); BILIRUBIN,TOTAL 0.6 mg/dL (0.2-1.0); CALCIUM, SERUM 8.5 mg/dL (8.5-10.1); CREATININE 1.3 mg/dL (0.6-1.3); MAGNESIUM 1.7 mg/dL (1.8-2.4); PHOSPHORUS 4.3 mg/dL (2.5-4.9); POTASSIUM 3.9 mmol/L (3.5-5.1); TOTAL PROTEIN, SERUM 6.4 g/dL (6.4-8.2)
[2017-04-17 05:21] LABS: EOSINOPHILS % (MANUAL) 2 % (0-4); LYMPHOCYTES % (MANUAL) 9 % (16-48); MONOCYTES % (MANUAL) 7 % (0-11.0); NEUTROPHILS % (MANUAL) 82 (42-76)
--- NOTE | 2017-04-17 07:49 | NUR ---
PT C/O OF SHORTNESS OF BREATH AND IS REQUESTING TO BE PLACED BACK ON BIPAP. PRESENTS WITH SIGNIFICANT PRODUCTIVE COUGH AND ARMS ARE RESTING ON HIS HEAD. NOTIFIED RT FOR BIPAP PLACEMENT.
[2017-04-17] MEDS: BLOOD SUGAR DIAGNOSTIC 1 EACH STRIP IN SCH ×4 (07:50→21:34)
[2017-04-17] MEDS ORDERED: BUMETANIDE INJ 8 MG in IV NS 0.9% 48 ML IV ONE (08:00)
[2017-04-17] MEDS ORDERED: AMIODARONE 150 MG in IV D5W 100 ML IV ONE (08:00)
[2017-04-17] MEDS ORDERED: AMIODARONE 900 MG in IV D5W 500 ML IV PRN (08:00)
--- NOTE | 2017-04-17 08:03 | NUR ---
PT GOES INTO [facility] 2:1 AROUND 0745, DR. JORGE ON THE UNIT SEES THE PT AND THE RHYTHM AND PLACES ORDERS: AMIODARONE GTT PROTOCOL, BUMEX 8MG, POTASSIUM AND MAG REPLACEMENTS.
[2017-04-17] MEDS: GUAIFENESIN LA 600 MG TABLET.SA PO SCH ×2 (08:20→21:32)
[2017-04-17] MEDS: ATORVASTATIN 40 MG TABLET PO SCH (08:20)
[2017-04-17] MEDS: LISINOPRIL (10MG) 10 MG TABLET PO SCH (08:20)
[2017-04-17] MEDS: methylPREDNISolone SOD SUCC 40 MG/ML VIAL IV SCH ×3 (08:20→17:29)
[2017-04-17] MEDS: Magnesium 1GM/D5W 100ML PREMIX 100 ML IV SCH ×2 (08:23→10:24)
[2017-04-17] MEDS: POTASSIUM CHLORIDE 20 MEQ TAB.PRT.SR PO SCH ×3 (08:23→10:25)
--- NOTE | 2017-04-17 08:45 | NUR ---
AFTER BREATHING TX, PT REQUESTED TO BE BACK ON NC FOR BREAKFAST. PLACED ON 4LITERS AND STAYED WITH THE PT TO ASSESS FOR TOLERATION. HE TOLERATES WITH SPO2 RANGING FROM 88-95%. WILL CONT TO MONITOR FOR PRN BIPAP NEED.
[2017-04-17] MEDS: FLUTICASONE/VILANTEROL 1 EACH BLST.W.DEV IH SCH (09:15)
[2017-04-17] MEDS: VITAMINS A AND D 56.7 GM TUBE TP SCH (09:16)
[2017-04-17] MEDS: MUPIROCIN OINT 2% 22 GM TUBE SCH ×2 (09:16→21:33)
[2017-04-17] MEDS: FLUTICASONE PROPIONATE 16 GM BOTTLE NS SCH (09:16)
[2017-04-17] MEDS: INSULIN REGULAR, HUMAN 100 UNIT/ML 3 ML VIAL SQ PRN ×4 (09:28→21:31)
[2017-04-17] MEDS ORDERED: AMIODARONE 900 MG in IV D5W 482 ML IV PRN (09:30)
[2017-04-17] MEDS ORDERED: Magnesium 1GM/D5W 100ML PREMIX 100 ML IV SCH (10:30)
[2017-04-17] MEDS: ACETAMINOPHEN 325 MG TABLET PO PRN (15:05)
[2017-04-17] MEDS: RIVAROXABAN 10 MG TABLET PO SCH (17:53)
[2017-04-17] MEDS: HYDROCODONE/APAP 5/325MG 1 EACH TABLET PO PRN ×2 (17:54→18:55)
--- NOTE | 2017-04-17 20:59 | NUR ---
received pt from day shift, alert, follows commands, A flutter, receiving amio drip at 0.5mg/hr, on 4L 02 sat well, tolerates diet, good urine output, v/s stable, no pain, pt turns and repositions by himself.
[2017-04-17] MEDS: INSULIN DETEMIR 100 UNIT/ML CARTRIDGE SQ SCH (21:32)
[2017-04-18] VITALS (27 sets, daily range): BP systolic 97–148; BP diastolic 28–97
--- NOTE | 2017-04-18 00:58 | NUR ---
pt is resting in the bed, on amio drip at 0.5mg/hr, v/s stable, no pain.
[2017-04-18] MEDS: IPRATROPIUM NEB FS 0.5 MG/2.5 ML AMPUL.NEB NEB SCH ×4 (01:36→19:16)
--- NOTE | 2017-04-18 04:20 | NUR ---
pt is resting in the bed, A flutter, on amio drip at 0.5mg/hr, on bipap, v/s stable, no pain, pt cleaned and changed.
[2017-04-18 04:32] LABS: EOSINOPHILS % (AUTO) 0.3 % (0.0-6.0); HEMATOCRIT 37 % (39-51); HEMOGLOBIN 11.3 g/dL (13.5-17.5); LYMPHOCYTES # (AUTO) 0.9 /CMM (0.8-4.8); LYMPHOCYTES % (AUTO) 10.1 % (20.0-44.0); MEAN CORPUSCULAR HEMOGLOBIN 22 PG (26.0-33.0); MEAN CORPUSCULAR HGB CONC 31 g/dl (31.0-36.0); MEAN CORPUSCULAR VOLUME 72 fL (80-96); MONOCYTES # (AUTO) 0.3 /CMM (0.1-1.30); MONOCYTES % (AUTO) 3.9 % (2.0-12.0); NEUTROPHILS # (AUTO) 7.6 /CMM (1.8-8.9); NEUTROPHILS % (AUTO) 85.7 % (43.0-81.0); PLATELET COUNT (AUTO) 264 /CMM (150-450); RDW COEFFICIENT OF VARIATION 23.7 (11.5-15.0); RED BLOOD CELL COUNT(AUTO) 5.11 MIL/uL (4.5-6.0); WHITE BLOOD COUNT (AUTO) 8.8 K/uL (4.3-11.0)
[2017-04-18 04:47] LABS: BILIRUBIN,TOTAL 0.5 mg/dL (0.2-1.0); CALCIUM, SERUM 9.1 mg/dL (8.5-10.1); CREATININE 1.3 mg/dL (0.6-1.3); PHOSPHORUS 4.2 mg/dL (2.5-4.9); POTASSIUM 5.1 mmol/L (3.5-5.1)
[2017-04-18 04:50] LABS: TROPONIN I 0.061 ng/mL (0.00-0.056)
[2017-04-18 04:58] LABS: TOTAL PROTEIN, SERUM 6.3 g/dL (6.4-8.2)
[2017-04-18 05:09] LABS: BAND % (MANUAL) 1 % (0.0-5.0); LYMPHOCYTES % (MANUAL) 14 % (16-48); MONOCYTES % (MANUAL) 3 % (0-11.0); NEUTROPHILS % (MANUAL) 82 (42-76)
--- NOTE | 2017-04-18 05:30 | NUR ---
amio ip finished.
--- NOTE | 2017-04-18 07:48 | NUR ---
INITIAL COMMUNITY SERVICES COORDINATOR NOTE RCVD PT AWAKE AND ALERT, SHOWING NO S/O DISTRESS OR C/O PAIN AT THIS TIME. AFL[facility]TER ON TELE. TOLERATING O2 VIA NC. BRONSON DRAINING CLOUDY, PALE YELLOW URINE. NO EDEMA PRESENT. VIBHA MIDLINE C/D/I/PATENT. RIGHT HAND #20 LEAKING UPON FLUSHING. LINE REMOVED. WILL CONTINUE TO MONITOR PT FOR SAFETY AND COMFORT CALL LIGHT WITHIN REACH. BED IN LOW AND LOCKED POSITION.
[2017-04-18] MEDS: BLOOD SUGAR DIAGNOSTIC 1 EACH STRIP IN SCH ×4 (08:15→21:49)
[2017-04-18] MEDS: GUAIFENESIN LA 600 MG TABLET.SA PO SCH ×2 (08:20→21:00)
[2017-04-18] MEDS: methylPREDNISolone SOD SUCC 40 MG/ML VIAL IV SCH ×3 (08:20→16:56)
[2017-04-18] MEDS: FLUTICASONE/VILANTEROL 1 EACH BLST.W.DEV IH SCH (08:20)
[2017-04-18] MEDS: ATORVASTATIN 40 MG TABLET PO SCH (08:20)
[2017-04-18] MEDS: LISINOPRIL (10MG) 10 MG TABLET PO SCH (08:21)
[2017-04-18] MEDS: FLUTICASONE PROPIONATE 16 GM BOTTLE NS SCH (08:24)
[2017-04-18] MEDS: VITAMINS A AND D 56.7 GM TUBE TP SCH (08:25)
[2017-04-18] MEDS: MUPIROCIN OINT 2% 22 GM TUBE SCH ×2 (09:56→21:00)
[2017-04-18] MEDS ORDERED: ALBUTEROL FS 2.5 MG/3 ML VIAL.NEB IH SCH (10:45)
--- NOTE | 2017-04-18 11:11 | NUR ---
HUNTING SALES ASSOCIATE NOTE PT TRANSPORTED TO RADIOLOGY FOR CT SCAN PER DR. TALAVERA'S ORDER. PT IN STABLE CONDITION TRANSPORTED BY WHEELCHAIR ACCOMPANIED BY RN AND TRANSPORT PERSONNEL.
--- NOTE | 2017-04-18 11:47 | NUR ---
FINISHING RANGE SUPERVISOR NOTE PT RETURN TO ROOM AFTER CT SCAN IN STABLE CONDITION. DR. JORGE IN UNIT EARLIER TODAY RECOMMENDED CARDIOVERSION IN AM IF PT REMAINS ON AFIB/FLUTTER. PT INFORMED AND IN AGREEMENT TO PROCEED WITH PROCEDURE IF NEEDED.
[2017-04-18] MEDS: AMIODARONE HCL 200 MG TABLET PO SCH ×2 (12:30→16:56)
[2017-04-18] MEDS: INSULIN REGULAR, HUMAN 100 UNIT/ML 3 ML VIAL SQ PRN ×3 (12:31→21:52)
--- NOTE | 2017-04-18 14:15 | NUR ---
RT PATIENT JUST FINISHED HAVING LUNCH AND DID NOT WANT TX AT THIS TIME
[2017-04-18] MEDS: ACETAMINOPHEN 325 MG TABLET PO PRN (15:37)
[2017-04-18] MEDS: DOCUSATE SODIUM 100 MG CAPSULE PO SCH (16:56)
[2017-04-18] MEDS: RIVAROXABAN 10 MG TABLET PO SCH (16:57)
[2017-04-18] MEDS: Z GUARD REMEDY 2 OZ OINT TP PRN (17:03)
--- NOTE | 2017-04-18 18:44 | NUR ---
CAN LINE OPERATOR NOTE PT REMAINS STABLE ON CONTROLLED A-FLUTTER, SHOWING NO S/O DISTRESS/PAIN AT THIS TIME. TOLERATING O2 VIA NC. BRONSON IN PLACE DRAINING YELLOW URINE. VIBHA MIDLINE C/D/I/PATENT. NO S/O INFILTRATION/PHLEBITIS OBSERVED UPON FLUSHING. PT'S CARE WILL BE ENDORSED TO ORE SMELTER RN FOR CONTINUITY OF CARE. BED IN LOW AND LOCKED POSITION. CALL LIGHT WITHIN REACH.
[2017-04-18] MEDS: ALBUTEROL HALF STRENGTH 1.25 MG/3 ML VIAL.NEB IH SCH (19:16)
--- NOTE | 2017-04-18 20:00 | NUR ---
Received patient awake alert and oriented x 4.Moves all extremities.VS stable.Respiration even and unlabored.With O2 2L NC saturation 97%.A-flutter controlled.Denies chest pain or sob.Assisted to bedside commode with small BM.Back to bed and made comfortable.FC draining clear yellow urine. VIBHA midline intact.Plan of care explained to patient.Verbalized understood.Plan for cardioversion in AM. 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
[2017-04-18] MEDS: INSULIN DETEMIR 100 UNIT/ML CARTRIDGE SQ SCH (21:51)
[2017-04-19] VITALS (40 sets, daily range): BP systolic 92–170; BP diastolic 51–108
--- NOTE | 2017-04-19 | NUR ---
Patient unable to sleep no apparent distress noted.VS.BM x 1.Bed bath rendered for comfort.
[2017-04-19] MEDS: IPRATROPIUM NEB FS 0.5 MG/2.5 ML AMPUL.NEB NEB SCH ×4 (01:34→18:42)
[2017-04-19] MEDS: ALBUTEROL HALF STRENGTH 1.25 MG/3 ML VIAL.NEB IH SCH ×4 (01:34→18:42)
--- NOTE | 2017-04-19 02:12 | NUR ---
Patient still awake.Ambien given as PRN med.Fall precaution maintained.Call light at bedside within easy reach.Bed alarm on.
--- NOTE | 2017-04-19 06:30 | NUR ---
Patient able to sleep for 4 hrs.VS stable.This time awake and get out of bed disoriented. Assisted back to bed and made comfortable.Reoriented to place and time.Safety precaution maintained.Sounds congested and RT,Itz tried to suction secretion but patient become violent. No acute distress noted.Continue monitoring.
[2017-04-19 07:09] LABS: ABG BASE EXCESS 5.7 mmol/L; ABG OXYGEN SATURATION 96.6 % (92.0-98.5); ABG PCO2 46.2 mmHg (35.0-45.0); ABG PO2 93.8 mmHg (75.0-100.0); AaDO2 51.3 mmHg; MetHb 0.7 % (0.0-1.5); SITE, ABG Right Radial
[2017-04-19] MEDS: BLOOD SUGAR DIAGNOSTIC 1 EACH STRIP IN SCH ×4 (07:33→21:41)
[2017-04-19] MEDS: INSULIN REGULAR, HUMAN 100 UNIT/ML 3 ML VIAL SQ PRN ×3 (07:37→21:53)
--- NOTE | 2017-04-19 07:45 | NUR ---
ICU/RN - Initial Notes Received pt in bed, asleep with eyes closed. Arousable to tactile stimuli. Alert to self, lethargic at this time. Sleep aid given by PM nurse. On tele reading A flutter 71. On O2 @ 2lpm via nasal cannula. Jacobsen catheter intact draining urine to gravity. VIBHA Midline saline locked, patent and intact. Safety and comfort measures in place. Will continue to monitor pt closely.
[2017-04-19] MEDS: FLUTICASONE/VILANTEROL 1 EACH BLST.W.DEV IH SCH (08:06)
[2017-04-19] MEDS: MUPIROCIN OINT 2% 22 GM TUBE SCH ×2 (08:06→21:41)
[2017-04-19] MEDS: VITAMINS A AND D 56.7 GM TUBE TP SCH (08:06)
[2017-04-19] MEDS: methylPREDNISolone SOD SUCC 40 MG/ML VIAL IV SCH ×3 (08:07→16:26)
[2017-04-19] MEDS: ATORVASTATIN 40 MG TABLET PO SCH (08:07)
[2017-04-19] MEDS: LISINOPRIL (10MG) 10 MG TABLET PO SCH (08:07)
[2017-04-19] MEDS: DOCUSATE SODIUM 100 MG CAPSULE PO SCH ×2 (08:07→16:26)
[2017-04-19] MEDS: AMIODARONE HCL 200 MG TABLET PO SCH ×3 (08:07→16:26)
[2017-04-19] MEDS: FLUTICASONE PROPIONATE 16 GM BOTTLE NS SCH (08:08)
[2017-04-19] MEDS: GUAIFENESIN LA 600 MG TABLET.SA PO SCH ×2 (08:09→21:41)
--- NOTE | 2017-04-19 08:30 | NUR ---
ICU/RN - Notes Pt alert to self, but disoriented at this time trying to get out of bed, stating "I need to get in my car and go home!" Reorientation to place and time provided to pt. Assisted pt back to bed.
[2017-04-19] MEDS ORDERED: ANESTHESIA TRAY IN PYXIS 1 EA TRAY MC ONE (08:41)
--- NOTE | 2017-04-19 09:12 | NUR ---
ICU/RN - Notes Dr Young at bedside for cardioversion. Dr Wolf (Anesthesia) at bedside for sedation.
--- NOTE | 2017-04-19 09:18 | NUR ---
ICU/RN - Notes Cardioversion successful with pt in sinus rhythm. Anesthesiologist at bedside with close monitoring. Vital signs monitored.
--- NOTE | 2017-04-19 09:47 | NUR ---
ICU/RN - Notes Pt awake and alert at this time. Vital signs stable.
[2017-04-19] MEDS: ACETAMINOPHEN 325 MG TABLET PO PRN (11:59)
--- NOTE | 2017-04-19 12:00 | NUR ---
ICU/RN - Notes Pt complains of headache. Administered Tylenol 650 mg PO as ordered. Will continue to monitor.
[2017-04-19] MEDS: RIVAROXABAN 10 MG TABLET PO SCH (16:31)
--- NOTE | 2017-04-19 17:57 | NUR ---
ICU/RN - Notes Pt sitting at the edge of bed, eating dinner and watching television, in no acute distress.
--- NOTE | 2017-04-19 18:43 | NUR ---
ICU/RN - Notes Pt complains of SOB and requests for breathing treatment. RT at bedside for treatment.
--- NOTE | 2017-04-19 19:30 | NUR ---
COIL WINDING SUPERVISOR INITIAL NOTE RCD PT W/DX ACUTE HYPOXIC RESPIRATORY FAILURE; PT IS A/Ox4; MILD BLE WEAKNESS NOTED. NSR ON MONITOR. O2 4L VIA NC W/RHONCHI ALL THROUGHOUT NOTED. BRONSON CATHETER WITH ADEQUATE AMOUNT OF YELLOW COLORED URINE. VIBHA MIDLINE PATENT AND FLUSHING WELL. PT DENIES PAIN. NO SOB NOTED AT THIS TIME. CONTINUE TO MONITOR.
--- NOTE | 2017-04-19 21:40 | NUR ---
SECOND COOK AND BAKER PT ACCU CHECK 291; INSULIN COVERAGE GIVEN. GAVE SNACK TO PT. CONTINUE TO MONITOR.
[2017-04-19] MEDS: INSULIN DETEMIR 100 UNIT/ML CARTRIDGE SQ SCH (21:44)
[2017-04-20] VITALS (18 sets, daily range): BP systolic 108–176; BP diastolic 64–102
--- NOTE | 2017-04-20 01:16 | NUR ---
REFERRAL NURSE PT REMOVED NASAL CANNULA ; DESATURATED AND BECAME CONFUSED TO WHERE HE WAS. REORIENTED PT AND EDUCATED TO NOT REMOVE NASAL CANNULA.
[2017-04-20] MEDS: IPRATROPIUM NEB FS 0.5 MG/2.5 ML AMPUL.NEB NEB SCH ×4 (01:40→20:45)
[2017-04-20] MEDS: ALBUTEROL HALF STRENGTH 1.25 MG/3 ML VIAL.NEB IH SCH ×4 (01:40→20:45)
[2017-04-20 04:47] LABS: EOSINOPHILS % (AUTO) 0.2 % (0.0-6.0); HEMATOCRIT 36 % (39-51); HEMOGLOBIN 11.2 g/dL (13.5-17.5); LYMPHOCYTES # (AUTO) 0.4 /CMM (0.8-4.8); LYMPHOCYTES % (AUTO) 4.3 % (20.0-44.0); MEAN CORPUSCULAR HEMOGLOBIN 23 PG (26.0-33.0); MEAN CORPUSCULAR HGB CONC 31 g/dl (31.0-36.0); MEAN CORPUSCULAR VOLUME 73 fL (80-96); MONOCYTES # (AUTO) 0.5 /CMM (0.1-1.30); MONOCYTES % (AUTO) 5.9 % (2.0-12.0); NEUTROPHILS # (AUTO) 7.9 /CMM (1.8-8.9); NEUTROPHILS % (AUTO) 89.6 % (43.0-81.0); PLATELET COUNT (AUTO) 202 /CMM (150-450); RDW COEFFICIENT OF VARIATION 23.7 (11.5-15.0); RED BLOOD CELL COUNT(AUTO) 4.98 MIL/uL (4.5-6.0); WHITE BLOOD COUNT (AUTO) 8.8 K/uL (4.3-11.0)
[2017-04-20 05:11] LABS: BILIRUBIN,TOTAL 0.5 mg/dL (0.2-1.0); CALCIUM, SERUM 9.2 mg/dL (8.5-10.1); CREATININE 1.1 mg/dL (0.6-1.3); MAGNESIUM 2.2 mg/dL (1.8-2.4); PHOSPHORUS 3.9 mg/dL (2.5-4.9); POTASSIUM 5.3 mmol/L (3.5-5.1); TOTAL PROTEIN, SERUM 6.1 g/dL (6.4-8.2)
[2017-04-20 06:18] LABS: LYMPHOCYTES % (MANUAL) 3 % (16-48); MONOCYTES % (MANUAL) 7 % (0-11.0); NEUTROPHILS % (MANUAL) 90 (42-76)
[2017-04-20] MEDS ORDERED: FUROSEMIDE 20 MG/2 ML VIAL IV ONE (07:30)
--- NOTE | 2017-04-20 07:45 | NUR ---
ICU/RN - Initial Notes Received pt in bed. Alert x2-3. On tele reading SR 81. On O2 @ 2lpm via nasal cannula. Jacobsen catheter intact draining urine to gravity. VIBHA Midline saline locked, patent and intact. Safety and comfort measures in place. Will continue to monitor pt closely.
[2017-04-20] MEDS: BLOOD SUGAR DIAGNOSTIC 1 EACH STRIP IN SCH ×4 (07:52→22:37)
[2017-04-20] MEDS: GUAIFENESIN LA 600 MG TABLET.SA PO SCH ×2 (08:04→20:12)
[2017-04-20] MEDS: methylPREDNISolone SOD SUCC 40 MG/ML VIAL IV SCH ×3 (08:04→17:37)
[2017-04-20] MEDS: ATORVASTATIN 40 MG TABLET PO SCH (08:04)
[2017-04-20] MEDS: DOCUSATE SODIUM 100 MG CAPSULE PO SCH ×2 (08:04→17:36)
[2017-04-20] MEDS: AMIODARONE HCL 200 MG TABLET PO SCH ×3 (08:04→17:37)
[2017-04-20] MEDS: FLUTICASONE PROPIONATE 16 GM BOTTLE NS SCH (08:05)
[2017-04-20] MEDS: VITAMINS A AND D 56.7 GM TUBE TP SCH (08:05)
[2017-04-20] MEDS: MUPIROCIN OINT 2% 22 GM TUBE SCH ×2 (08:05→20:12)
[2017-04-20] MEDS: FLUTICASONE/VILANTEROL 1 EACH BLST.W.DEV IH SCH (08:05)
--- NOTE | 2017-04-20 08:45 | NUR ---
ICU/RN - Notes Pt seen and evaluated by Dr Santos at this time. cleared patient to be transferred to [facility].
--- NOTE | 2017-04-20 10:30 | NUR ---
ICU/RN - Notes Physical therapy at bedside for evaluation.
[2017-04-20] MEDS: INSULIN REGULAR, HUMAN 100 UNIT/ML 3 ML VIAL SQ PRN ×3 (12:14→22:38)
--- NOTE | 2017-04-20 15:00 | NUR ---
ICU/RN - Transfer Pt transferred to [facility] 119-1 via ACLS protocol in stable condition. Report given to CHENCHO Rosenberg for continuity of care. All belongings taken with patient.
--- NOTE | 2017-04-20 15:15 | NUR ---
RN NOTE RECEIVED PT ON BED, AOX3, ON NC, 2 L/MIN, NO SOB, CO HEADACHE, AND FEELING HOT, BELONGINGS AT BEDSIDE, FOREIGN BANKNOTE TELLER ON, VS STABLE, WILL CONTINUE TO MONITOR. SAFETY MEASURES IMPLEMENTED, CALL LIGHT WITHIN REACH.
[2017-04-20] MEDS: ACETAMINOPHEN 325 MG TABLET PO PRN (15:36)
[2017-04-20] MEDS: RIVAROXABAN 10 MG TABLET PO SCH (17:39)
[2017-04-20] MEDS: HYDROCODONE/APAP 5/325MG 1 EACH TABLET PO PRN (20:12)
--- NOTE | 2017-04-20 22:00 | NUR ---
RN:TD: PT RECEIVED IN BED, ALERT AND ABLE TO FOLLOW COMMANDS BUT CONFUSED AT TIMES. PT EDUCATED COORDINATING PRODUCER LIGHT BUT HE FREQUENTLY GETS OUT OF BED WITH OUT ASSISTANCE. PT ASSISTED TO COMMODE BUT PT DID NOT HAVE BM. COMPLETE BED BATH PROVIDED. PT BP ELEVATED IT WAS TAKEN IMMEDIATELY AFTER PT AMBULATED TO COMMODE. WILL REASSESS AT MIDNIGHT IF PT REQUIRES MEDICATION FOR BP. PT COMPLAINED OF DE SOUZA, PT GIVEN NORCO PER MD ORDERS. PT REPORT IMPROVED RELIEF FOLLOWING FURNACE STOCK INSPECTOR. PT HAS F/C WITH ADEQUATE U/O. VIBHA MIDLINE INTACT. PT GIVEN SANDWICH. FALL AND ASPIRATION PRECAUTIONS IN PLACE. WILL CONTINUE TO MONITOR CLOSELY. BOTTOM DENTURES AT THE BEDSIDE.
[2017-04-20] MEDS: INSULIN DETEMIR 100 UNIT/ML CARTRIDGE SQ SCH (22:39)
[2017-04-21] VITALS (15 sets, daily range): BP systolic 121–162; BP diastolic 54–114
[2017-04-21] MEDS: IPRATROPIUM NEB FS 0.5 MG/2.5 ML AMPUL.NEB NEB SCH ×4 (02:06→20:01)
[2017-04-21] MEDS: ALBUTEROL HALF STRENGTH 1.25 MG/3 ML VIAL.NEB IH SCH ×6 (02:06→23:27)
[2017-04-21 06:52] LABS: EOSINOPHILS # (AUTO) 0.2 /CMM (0.0-0.7); EOSINOPHILS % (AUTO) 1.4 % (0.0-6.0); HEMATOCRIT 39 % (39-51); LYMPHOCYTES # (AUTO) 0.4 /CMM (0.8-4.8); LYMPHOCYTES % (AUTO) 3.5 % (20.0-44.0); MEAN CORPUSCULAR HEMOGLOBIN 22 PG (26.0-33.0); MEAN CORPUSCULAR HGB CONC 31 g/dl (31.0-36.0); MEAN CORPUSCULAR VOLUME 73 fL (80-96); MONOCYTES # (AUTO) 0.4 /CMM (0.1-1.30); MONOCYTES % (AUTO) 3.6 % (2.0-12.0); NEUTROPHILS # (AUTO) 10.5 /CMM (1.8-8.9); NEUTROPHILS % (AUTO) 91.5 % (43.0-81.0); PLATELET COUNT (AUTO) 215 /CMM (150-450); RDW COEFFICIENT OF VARIATION 23.5 (11.5-15.0); RED BLOOD CELL COUNT(AUTO) 5.39 MIL/uL (4.5-6.0); WHITE BLOOD COUNT (AUTO) 11.4 K/uL (4.3-11.0)
[2017-04-21 07:14] LABS: ALBUMIN 3.2 g/dL (3.4-5.0); BILIRUBIN,TOTAL 0.5 mg/dL (0.2-1.0); CALCIUM, SERUM 9.2 mg/dL (8.5-10.1); CREATININE 1.2 mg/dL (0.6-1.3); MAGNESIUM 2.3 mg/dL (1.8-2.4); PHOSPHORUS 3.8 mg/dL (2.5-4.9); POTASSIUM 5.4 mmol/L (3.5-5.1); TOTAL PROTEIN, SERUM 6.5 g/dL (6.4-8.2)
--- NOTE | 2017-04-21 08:00 | NUR ---
[facility]/RN INITIAL NOTES,AM RECEIVED REPORT FROM NIGHT NURSE. PT ALERT, AWAKE, FOLLOWS COMMANDS. PT ON 3LITERS NASAL CANULA, SOB UPON EXERTION. BREATHING TX WILL BE DONE. PT ATTEMPTS TO BED OUT OF BED, REORIENTED AND REMINDED TO USE CALL LIGHT. BRONSON CATH IN PLACE, DRAINING URINE. SKIN INTACT, PT REPOSITIONED. MIDLINE PATENT AND INTACT, NO S/S OF INFECTION OR INFILTRATION NOTED. ALL NEEDS WILL BE MET, SAFETY MEASURES TAKEN, BED IN LOW POSITION, CALL LIGHT WITHIN REACH. WILL CONTINUE CARE
[2017-04-21] MEDS: methylPREDNISolone SOD SUCC 40 MG/ML VIAL IV SCH ×3 (08:22→16:17)
[2017-04-21] MEDS: DOCUSATE SODIUM 100 MG CAPSULE PO SCH ×2 (08:22→16:17)
[2017-04-21] MEDS: GUAIFENESIN LA 600 MG TABLET.SA PO SCH ×2 (08:22→22:03)
[2017-04-21] MEDS: BLOOD SUGAR DIAGNOSTIC 1 EACH STRIP IN SCH ×4 (08:22→22:12)
[2017-04-21] MEDS: ATORVASTATIN 40 MG TABLET PO SCH (08:23)
[2017-04-21] MEDS: FLUTICASONE/VILANTEROL 1 EACH BLST.W.DEV IH SCH (08:23)
[2017-04-21] MEDS: AMIODARONE HCL 200 MG TABLET PO SCH ×3 (08:23→16:17)
[2017-04-21] MEDS: VITAMINS A AND D 56.7 GM TUBE TP SCH (08:24)
[2017-04-21] MEDS: MUPIROCIN OINT 2% 22 GM TUBE SCH ×2 (08:24→22:04)
[2017-04-21] MEDS: INSULIN REGULAR, HUMAN 100 UNIT/ML 3 ML VIAL SQ PRN ×4 (08:26→22:19)
[2017-04-21] MEDS: FLUTICASONE PROPIONATE 16 GM BOTTLE NS SCH (08:27)
--- NOTE | 2017-04-21 09:15 | NUR ---
ICU/RN: CALLED, REGARDING TACHYPNEA AND SOB, TLO ORDERS RECEIVED. WILL CONTINUE TO MONITOR AND ASSESS. INFORMED RT, DEEP SUCTIONING DONE.
[2017-04-21] MEDS ORDERED: IPRATROPIUM NEB FS 0.5 MG/2.5 ML AMPUL.NEB NEB PRN (09:30)
[2017-04-21 10:14] LABS: MONOCYTES % (MANUAL) 8 % (0-11.0); NEUTROPHILS % (MANUAL) 92 (42-76)
[2017-04-21] MEDS ORDERED: LEVOFLOXACIN 500 MG /D5W 100ML 500 MG in PREMIX 1 EA IV SCH (11:00)
[2017-04-21] MEDS: IPRATROPIUM NEB FS 0.5 MG/2.5 ML AMPUL.NEB NEB PRN (11:24)
[2017-04-21] MEDS: ALBUTEROL FS 2.5 MG/3 ML VIAL.NEB NEB PRN ×2 (11:24→13:57)
[2017-04-21] MEDS ORDERED: ACETYLCYSTEINE 20% SOLN 800 MG/4 ML VIAL NEB SCH (13:00)
--- NOTE | 2017-04-21 14:10 | NUR ---
ICU/RN: PT HAVING DIFFICULTY BREATHING, TACHYPNEIC, USE OF ACCESSORY MUSCLES POST DEEP SUCTIONING AND PRN BREATHING TX. PT STARTED TO DESATURATE. CALLED AND INFORMED OF CHANGE IN CONDITION. ORDERS RECEIVED TO DO AN ABG, TRANSFER PT TO ICU. WILL FOLLOW THROUGH.
[2017-04-21 14:40] LABS: ABG BASE EXCESS 3.5 mmol/L; ABG OXYGEN SATURATION 99.6 % (92.0-98.5); ABG PCO2 79.5 mmHg (35.0-45.0); ABG PH 7.242 (7.350-7.450); ABG PO2 349.2 mmHg (75.0-100.0); AaDO2 284.3 mmHg; COHb 1.3 % (0.5-1.5); MetHb 0.6 % (0.0-1.5); O2Hb 97.7 % (94.0-97.0); SITE, ABG Left Radial; VENT MODE, BG 15/L NRB
--- NOTE | 2017-04-21 15:00 | NUR ---
EMERGENCY MEDICAL TECHNICIAN/DRIVER RECEIVED PATIENT FROM [facility] RN PLACED ON BIPAP, PATIENT WAS IN DISTRESS AND DROWSY MOANS WHEN ASKED BLOOD PRESSURE ELEVATED MONITORED CLOSELY
--- NOTE | 2017-04-21 15:15 | NUR ---
[facility]/RN: PT TRANSFERRED TO ICU, REPORT ENDORSED TO LEONA PAIZ. PT STARTED ON BIPAP. ALL BELONGINGS INCLUDING DENTURES AND GLASSES TRANSFERRED WITH PT
[2017-04-21] MEDS ORDERED: ALBUTEROL FS 2.5 MG/3 ML VIAL.NEB NEB ONE (15:30)
[2017-04-21] MEDS ORDERED: ALBUTEROL FS 2.5 MG/3 ML VIAL.NEB NEB SCH (15:30)
[2017-04-21] MEDS: ACETYLCYSTEINE 10% SOLN 400 MG/4 ML VIAL NEB SCH ×2 (15:30→23:27)
--- NOTE | 2017-04-21 15:30 | NUR ---
AFTER BREATHING TREATMENT AND NT SUCTION PATIENT'S WOB INCREASED. SP02 DECREASED. PATIENT WAS PLACED ON NON-REBREATHER @15LPM. SP02 INCREASED TO 100% ABG DONE AND REPORTED. TRANSFERRED PATIENT TO ICU AND PLACED ON BIPAP PER MD ORDER. PATIENT TOLERATING WELL.
[2017-04-21 16:10] LABS: ABG BASE EXCESS 4.4 mmol/L; ABG OXYGEN SATURATION 99.3 % (92.0-98.5); ABG PCO2 58.6 mmHg (35.0-45.0); ABG PH 7.348 (7.350-7.450); AaDO2 29.6 mmHg; COHb 1.1 % (0.5-1.5); MetHb 0.9 % (0.0-1.5); O2Hb 97.3 % (94.0-97.0); SITE, ABG Left Radial
[2017-04-21] MEDS: MEROPENEM 500 MG in IV NS 0.9% 50 ML IV SCH ×2 (16:17→23:39)
[2017-04-21] MEDS: RIVAROXABAN 10 MG TABLET PO SCH (16:18)
--- NOTE | 2017-04-21 16:23 | NUR ---
HHN TX PT ON CONTINUOS HHN TX. Q4 TX NOT GIVEN. PT ON TX'S AT THIS TIME.
[2017-04-21] MEDS: ACETAMINOPHEN 325 MG TABLET PO PRN (17:38)
--- NOTE | 2017-04-21 19:30 | NUR ---
CASHIER CREDIT: RECEIVED PT WITH EYES CLOSED. ABLE TO OPEN EYES, FOLLOW COMMANDS AND VERBALIZE NEEDS. CONTINUE ON BIPAP WT SETTINGS ORDERED AND TOLERATING WELL. NO ACUTE DISTRESS, NO C/O PAIN OR EVIDENCE OF DISCOMFORT. SR ON MONITOR. AFEBRILE. VIBHA MIDLINE INTACT WT NS TKO, NO S/S OF INFILTRATION. F/C PATENT AND INTACT DRAINING GINNY COLORED URINE. HOB ON 35 DEGREES. SAFETY PRECAUTION NOTED. CALL LIGHT WITHIN EASY REACH.
[2017-04-21] MEDS ORDERED: INSULIN DETEMIR 100 UNIT/ML CARTRIDGE SQ ONE (22:37)
[2017-04-21] MEDS: INSULIN DETEMIR 100 UNIT/ML CARTRIDGE SQ SCH (22:49)
[2017-04-22] VITALS (25 sets, daily range): BP systolic 107–153; BP diastolic 57–95
--- NOTE | 2017-04-22 00:30 | NUR ---
EMERGENCY DEPARTMENT PHYSICIAN: TOLERATING BIPAP SETTINGS ORDERED. NO RITA. VS WITHIN HIS BASELINE.
--- NOTE | 2017-04-22 01:25 | NUR ---
TEMPLER HEAD: PT REQUESTED TO BE OFF BIPAP AT THIS TIME. RT PLACED HIM ON 3L 02 VIA NC WT 02 SAT ABOVE 92%. WILL CONTINUE TO MONITOR.
--- NOTE | 2017-04-22 02:00 | NUR ---
TAKER AWAY: 02 SAT DECREASED TO 87-89%. PT STILL REFUSED TO BE PLACED BACK ON BIPAP. NOW ON 6L 02 VIA SIMPLE FACE MASK AND TOLERATING WELL WT 02 SAT AT 92%. WILL CONTINUE TO MONITOR.
[2017-04-22] MEDS: ACETAMINOPHEN 325 MG TABLET PO PRN (03:07)
--- NOTE | 2017-04-22 03:10 | NUR ---
BEEF FARMER: GIVEN TYLENOL ORDERED FOR C/O HEADACHE (09/03) AND MYLANTA FOR INDIGESTION. WILL MONITOR EFFECTIVITY.
[2017-04-22] MEDS: IPRATROPIUM NEB FS 0.5 MG/2.5 ML AMPUL.NEB NEB SCH ×4 (03:18→19:47)
[2017-04-22] MEDS: ALBUTEROL HALF STRENGTH 1.25 MG/3 ML VIAL.NEB IH SCH ×4 (03:18→19:47)
--- NOTE | 2017-04-22 03:50 | NUR ---
NURSES' REGISTRY DIRECTOR: PT REQUESTED TO BE PLACED BACK ON BIPAP.
--- NOTE | 2017-04-22 04:10 | NUR ---
PROFILING MACHINE SET UP OPERATOR TOOL: REASSESSED AFTER GIVEN TYLENOL AND MYLANTA WT GOOD EFFECT. PT VERBALIZED RELIEF FROM HEADACHE (0/10) AND INDIGESTION.
[2017-04-22 05:14] LABS: HEMATOCRIT 40 % (39-51); HEMOGLOBIN 12.2 g/dL (13.5-17.5); LYMPHOCYTES # (AUTO) 0.1 /CMM (0.8-4.8); LYMPHOCYTES % (AUTO) 0.3 % (20.0-44.0); MEAN CORPUSCULAR HEMOGLOBIN 22 PG (26.0-33.0); MEAN CORPUSCULAR HGB CONC 30 g/dl (31.0-36.0); MEAN CORPUSCULAR VOLUME 73 fL (80-96); MONOCYTES # (AUTO) 0.7 /CMM (0.1-1.30); MONOCYTES % (AUTO) 3.5 % (2.0-12.0); NEUTROPHILS % (AUTO) 96.2 % (43.0-81.0); PLATELET COUNT (AUTO) 211 /CMM (150-450); RDW COEFFICIENT OF VARIATION 23.9 (11.5-15.0); RED BLOOD CELL COUNT(AUTO) 5.51 MIL/uL (4.5-6.0); WHITE BLOOD COUNT (AUTO) 19.7 K/uL (4.3-11.0)
[2017-04-22 05:22] LABS: CALCIUM, SERUM 9.1 mg/dL (8.5-10.1); CREATININE 1.3 mg/dL (0.6-1.3)
--- NOTE | 2017-04-22 06:30 | NUR ---
HAIRPIECE STYLIST: PT REQUESTED TO BE OFF BIPAP AND PLACED ON 3L 02 VIA NC. REMAINED A/O X 3. NO ACUTE DISTRESS. NO C/O PAIN. VS WIHIN HIS BASELINE. F/C REMAINED PATENT AND INTACT DRAINING MORE PRONOUNCED PINK-TINGED URINE VIA GRAVITY. PT ON XARELTO. WILL ENDORSE TO DAY SHIFT TO FOLLOW UP WT MD. ALL NEEDS MET. SAFETY PRECAUTION NOTED.
[2017-04-22] MEDS: MEROPENEM 500 MG in IV NS 0.9% 50 ML IV SCH ×3 (06:42→22:49)
[2017-04-22] MEDS: ACETYLCYSTEINE 10% SOLN 400 MG/4 ML VIAL NEB SCH ×3 (07:37→23:37)
--- NOTE | 2017-04-22 07:45 | NUR ---
TOPOGRAPHICAL FIELD ASSISTANT; Assessment Received pt awake and oriented x3, on nasal canula 3l. pt denies any pain at this time. noted pt sob with exertion, saturations 92-86%. Breathing techniques given. Pt able to demonstrate breathing techniques. Rt at bedside decreased his O2 to 2l/min nasal canula. Jacobsen cath intact draining to gravity, pink tinge urine noted. No acute distress noted. will continue to monitor closely.
[2017-04-22] MEDS ORDERED: acetaZOLAMIDE SODIUM 500 MG/VIAL VIAL IV ONE (08:00)
[2017-04-22] MEDS: GUAIFENESIN LA 600 MG TABLET.SA PO SCH ×2 (08:13→21:44)
[2017-04-22] MEDS: AMIODARONE HCL 200 MG TABLET PO SCH ×3 (08:13→17:52)
[2017-04-22] MEDS: BLOOD SUGAR DIAGNOSTIC 1 EACH STRIP IN SCH ×4 (08:13→22:43)
[2017-04-22] MEDS: ATORVASTATIN 40 MG TABLET PO SCH (08:13)
[2017-04-22] MEDS: DOCUSATE SODIUM 100 MG CAPSULE PO SCH ×2 (08:13→17:53)
[2017-04-22] MEDS: methylPREDNISolone SOD SUCC 40 MG/ML VIAL IV SCH ×3 (08:14→17:53)
[2017-04-22] MEDS: VITAMINS A AND D 56.7 GM TUBE TP SCH (08:17)
[2017-04-22] MEDS: FLUTICASONE PROPIONATE 16 GM BOTTLE NS SCH (08:18)
[2017-04-22] MEDS: FLUTICASONE/VILANTEROL 1 EACH BLST.W.DEV IH SCH (08:18)
[2017-04-22] MEDS: MUPIROCIN OINT 2% 22 GM TUBE SCH ×2 (08:18→21:49)
--- NOTE | 2017-04-22 08:30 | NUR ---
CAR FRAMER; Pts requesting to get oob. Assisted pt to chair. Noted pts saturation drop to 85%. Advised pt to take slow deep breaths. Pt able to follow instructions. takes about 5min for pts saturation to increast to 90%. will discuss with pulmonary when rounding. Addendum: 04/22/17 at 1202 by FATOUMATA MARIE RN Pt tolerated OOB for about 3hrs. pt requested to go back to bed.
[2017-04-22] MEDS: INSULIN REGULAR, HUMAN 100 UNIT/ML 3 ML VIAL SQ PRN ×4 (08:33→22:49)
--- NOTE | 2017-04-22 09:00 | NUR ---
CAR TRACER, Primary MD Dr. Santos at bedside, update was given. discussed with that pts brother would like an update regarding poc.
[2017-04-22 09:51] LABS: LYMPHOCYTES % (MANUAL) 1 % (16-48); MONOCYTES % (MANUAL) 4 % (0-11.0); NEUTROPHILS % (MANUAL) 95 (42-76)
[2017-04-22 10:02] LABS: ABG BASE EXCESS 7.4 mmol/L; ABG OXYGEN SATURATION 93.3 % (92.0-98.5); ABG PCO2 51.8 mmHg (35.0-45.0); ABG PH 7.424 (7.350-7.450); ABG PO2 71.4 mmHg (75.0-100.0); AaDO2 67.1 mmHg; COHb 1.3 % (0.5-1.5); MetHb 0.7 % (0.0-1.5); O2Hb 91.4 % (94.0-97.0); VENT MODE, BG N/C 2
[2017-04-22] MEDS: RIVAROXABAN 10 MG TABLET PO SCH (17:53)
[2017-04-22] MEDS: MAGNESIUM HYDROXIDE 30 ML UDC PO PRN (17:54)
--- NOTE | 2017-04-22 19:30 | NUR ---
REAL ESTATE RENTAL AGENT: RECEIVED PT WATCHING TV, A/O X 3. ON 2L 02 VIA NC WT NO ACUTE DISTRESS. NO C/O PAIN. DOES NOT WANT TO BE PLACED ON BIPAP. VS WITHIN HIS BASELINE. F/C PATENT AND INTACT DRAINING PINK-TINGED URINE BY GRAVITY. SAFETY PRECAUTION NOTED. WILL CONTINUE TO MONITOR.
[2017-04-22] MEDS: INSULIN DETEMIR 100 UNIT/ML CARTRIDGE SQ SCH (22:41)
[2017-04-23] VITALS (26 sets, daily range): BP systolic 95–172; BP diastolic 45–94
--- NOTE | 2017-04-23 00:30 | NUR ---
LINE LOCATOR: PT ASLEEP, ABLE TO WAKE UP WHEN CALLED BY NAME OR TOUCHED. STILL ON 2L 02 VIA NC WT NO ACUTE DISTRESS. 02 SAT ABOVE 92%. REFUSED TO BE ON BIPAP. WILL CONTINUE TO MONITOR.
[2017-04-23] MEDS: IPRATROPIUM NEB FS 0.5 MG/2.5 ML AMPUL.NEB NEB SCH ×4 (01:12→19:24)
[2017-04-23] MEDS: ALBUTEROL HALF STRENGTH 1.25 MG/3 ML VIAL.NEB IH SCH ×4 (01:13→19:24)
--- NOTE | 2017-04-23 02:30 | NUR ---
TABLET MAKING MACHINE OPERATOR: PT REQUESTED TO SIT ON BEDSIDE CHAIR AND TOLERATED FAIRLY. SOB ON EXERTION. STILL ON 2L 02 VIA NC AND CONTINUES TO REFUSE BIPAP. WILL CONTINUE TO MONITOR.
[2017-04-23 05:03] LABS: EOSINOPHILS # (AUTO) 0.1 /CMM (0.0-0.7); EOSINOPHILS % (AUTO) 0.9 % (0.0-6.0); HEMATOCRIT 39 % (39-51); HEMOGLOBIN 11.9 g/dL (13.5-17.5); LYMPHOCYTES # (AUTO) 0.1 /CMM (0.8-4.8); LYMPHOCYTES % (AUTO) 0.7 % (20.0-44.0); MEAN CORPUSCULAR HEMOGLOBIN 22 PG (26.0-33.0); MEAN CORPUSCULAR HGB CONC 31 g/dl (31.0-36.0); MEAN CORPUSCULAR VOLUME 73 fL (80-96); MONOCYTES # (AUTO) 0.3 /CMM (0.1-1.30); MONOCYTES % (AUTO) 2.2 % (2.0-12.0); NEUTROPHILS # (AUTO) 11.3 /CMM (1.8-8.9); NEUTROPHILS % (AUTO) 96.2 % (43.0-81.0); PLATELET COUNT (AUTO) 173 /CMM (150-450); RDW COEFFICIENT OF VARIATION 23.5 (11.5-15.0); WHITE BLOOD COUNT (AUTO) 11.8 K/uL (4.3-11.0)
[2017-04-23 05:12] LABS: CALCIUM, SERUM 9.3 mg/dL (8.5-10.1); CREATININE 1.1 mg/dL (0.6-1.3); POTASSIUM 5.9 mmol/L (3.5-5.1)
--- NOTE | 2017-04-23 06:10 | NUR ---
HARNESS WORKER: REMAINED A/O X 3. STILL ON 2L 02 VIA NC WT NO ACUTE DISTRESS. NO C/O PAIN. VS WITHIN HIS BASELINE. SAFETY PRECAUTION NOTED AT ALL TIMES.
[2017-04-23 06:26] LABS: LYMPHOCYTES % (MANUAL) 1 % (16-48); MONOCYTES % (MANUAL) 2 % (0-11.0); NEUTROPHILS % (MANUAL) 97 (42-76)
--- NOTE | 2017-04-23 07:00 | NUR ---
icu initial note received pt awake, able to make needs known, able to follow commands, pt is able to move all extremities, pt is on bedside monitor showing sr w/ pvc's in 80's, no c/o of chest pain or discomfort at this time, pt on 2l nc, sating well, pt is labored but even, crackles/wheezing in all valderrama, pt has gabriela midline # 18g, c/d/i/patent, flushing well, no s/s of infection/ infiltration noted, pt is noted with multiple skin issues, wound care will be carried out, pt has f/c draining yellow urine to gravity,isolation precautions observed at all times, all safety measures in place at all times, call light within easy reach, will monitor pt closely for changes
--- NOTE | 2017-04-23 07:10 | NUR ---
icu note f/c removed per pt request, aware
[2017-04-23] MEDS: ACETYLCYSTEINE 10% SOLN 400 MG/4 ML VIAL NEB SCH ×3 (07:37→23:30)
--- NOTE | 2017-04-23 08:15 | NUR ---
icu note brother of pt called, updated, answered all questions and concerns
[2017-04-23 09:02] LABS: ABG BASE EXCESS 4.3 mmol/L; ABG OXYGEN SATURATION 95.7 % (92.0-98.5); ABG PCO2 46.4 mmHg (35.0-45.0); ABG PH 7.421 (7.350-7.450); ABG PO2 85.5 mmHg (75.0-100.0); AaDO2 30.4 mmHg; COHb 1.3 % (0.5-1.5); MetHb 0.8 % (0.0-1.5); O2Hb 93.7 % (94.0-97.0); SITE, ABG Right Radial; VENT MODE, BG NASAL CANNULA
[2017-04-23] MEDS: methylPREDNISolone SOD SUCC 40 MG/ML VIAL IV SCH ×3 (09:24→16:43)
[2017-04-23] MEDS: DOCUSATE SODIUM 100 MG CAPSULE PO SCH ×2 (09:24→16:43)
[2017-04-23] MEDS: GUAIFENESIN LA 600 MG TABLET.SA PO SCH ×2 (09:24→21:32)
[2017-04-23] MEDS: ATORVASTATIN 40 MG TABLET PO SCH (09:24)
[2017-04-23] MEDS: MEROPENEM 500 MG in IV NS 0.9% 50 ML IV SCH ×3 (09:24→22:11)
[2017-04-23] MEDS: FLUTICASONE/VILANTEROL 1 EACH BLST.W.DEV IH SCH (09:25)
[2017-04-23] MEDS: MUPIROCIN OINT 2% 22 GM TUBE SCH ×2 (09:25→21:48)
[2017-04-23] MEDS: AMIODARONE HCL 200 MG TABLET PO SCH ×3 (09:25→16:44)
[2017-04-23] MEDS: VITAMINS A AND D 56.7 GM TUBE TP SCH (09:25)
[2017-04-23] MEDS: FLUTICASONE PROPIONATE 16 GM BOTTLE NS SCH (09:26)
[2017-04-23] MEDS: BLOOD SUGAR DIAGNOSTIC 1 EACH STRIP IN SCH ×4 (09:26→21:38)
[2017-04-23] MEDS: FUROSEMIDE 40 MG/4 ML VIAL IV SCH ×3 (09:28→15:30)
--- NOTE | 2017-04-23 09:30 | NUR ---
icu note dr. shoemaker made rounds, answered all questions and concerns
--- NOTE | 2017-04-23 11:30 | NUR ---
icu note pt requested to place back on bipap 20/10 rate 12 fio2 40%
[2017-04-23] MEDS: INSULIN REGULAR, HUMAN 100 UNIT/ML 3 ML VIAL SQ PRN ×3 (12:40→21:46)
[2017-04-23 14:14] LABS: CREATININE 1.3 mg/dL (0.6-1.3); POTASSIUM 5.6 mmol/L (3.5-5.1)
[2017-04-23] MEDS: ACETAMINOPHEN 325 MG TABLET PO PRN (14:22)
[2017-04-23] MEDS: RIVAROXABAN 10 MG TABLET PO SCH (16:45)
--- NOTE | 2017-04-23 19:30 | NUR ---
RECORDS ANALYST: RECEIVED PT ON BED WATCHING TV. A/O X3. ON 3L 02 VIA NC WT NO ACUTE DISTRESS. 02 SAT ABOVE 92%. NO C/O PAIN. USES URINAL FOR VOIDING WT YELLOW COLORED URINE NOTED. VS WITHIN HIS BASELINE. VIBHA MIDLINE INTACT AND PATENT WT NO S/S OF INFILTRATION. HOB ON HIGH WEBER'S. CALL LIGHT WITHIN EASY REACH. SAFETY PRECAUTION NOTED.
[2017-04-23] MEDS: INSULIN DETEMIR 100 UNIT/ML CARTRIDGE SQ SCH (21:42)
--- NOTE | 2017-04-23 23:25 | NUR ---
LABEL STITCHER: PT ASLEEP, 02 SAT 88% NC HAS BEEN DISLODGED. PLACED BACK ON 3L 02 AND SAT WENT UP ABOVE 90%. OFFERED BIPAP AND CONTINUED TO REFUSED. NO ACUTE DISTRESS. WILL CONTINUE TO MONITOR.
[2017-04-24] VITALS (20 sets, daily range): BP systolic 120–155; BP diastolic 41–93
[2017-04-24] MEDS: IPRATROPIUM NEB FS 0.5 MG/2.5 ML AMPUL.NEB NEB SCH ×4 (01:13→20:31)
[2017-04-24] MEDS: ALBUTEROL HALF STRENGTH 1.25 MG/3 ML VIAL.NEB IH SCH ×4 (01:14→20:31)
--- NOTE | 2017-04-24 04:00 | NUR ---
STRUCTURAL IRON WORKER: SPONGE BATH GIVEN AND TOLERATED WELL. VS WITHIN HIS BASELINE.
[2017-04-24 05:09] LABS: BASOPHILS % (AUTO) 0.1 % (0.0-2.0); EOSINOPHILS # (AUTO) 0.1 /CMM (0.0-0.7); EOSINOPHILS % (AUTO) 0.4 % (0.0-6.0); HEMATOCRIT 39 % (39-51); HEMOGLOBIN 12.1 g/dL (13.5-17.5); LYMPHOCYTES # (AUTO) 0.8 /CMM (0.8-4.8); LYMPHOCYTES % (AUTO) 5.8 % (20.0-44.0); MEAN CORPUSCULAR HEMOGLOBIN 22 PG (26.0-33.0); MEAN CORPUSCULAR HGB CONC 31 g/dl (31.0-36.0); MEAN CORPUSCULAR VOLUME 72 fL (80-96); MONOCYTES # (AUTO) 0.4 /CMM (0.1-1.30); MONOCYTES % (AUTO) 3.1 % (2.0-12.0); NEUTROPHILS # (AUTO) 12.2 /CMM (1.8-8.9); NEUTROPHILS % (AUTO) 90.6 % (43.0-81.0); PLATELET COUNT (AUTO) 182 /CMM (150-450); RDW COEFFICIENT OF VARIATION 24.2 (11.5-15.0); RED BLOOD CELL COUNT(AUTO) 5.42 MIL/uL (4.5-6.0); WHITE BLOOD COUNT (AUTO) 13.5 K/uL (4.3-11.0)
[2017-04-24 05:30] LABS: ALBUMIN 2.9 g/dL (3.4-5.0); BILIRUBIN,TOTAL 0.7 mg/dL (0.2-1.0); CALCIUM, SERUM 8.8 mg/dL (8.5-10.1); CREATININE 1.1 mg/dL (0.6-1.3); MAGNESIUM 2.2 mg/dL (1.8-2.4); PHOSPHORUS 3.6 mg/dL (2.5-4.9); POTASSIUM 4.3 mmol/L (3.5-5.1); TOTAL PROTEIN, SERUM 6.1 g/dL (6.4-8.2)
[2017-04-24 05:33] LABS: BAND % (MANUAL) 3 % (0.0-5.0); LYMPHOCYTES % (MANUAL) 8 % (16-48); MONOCYTES % (MANUAL) 3 % (0-11.0); NEUTROPHILS % (MANUAL) 86 (42-76)
--- NOTE | 2017-04-24 06:30 | NUR ---
DOCKET SPECIALIST: REMAINED IN STABLE CONDITION AND ON 3L 02 VIA NC. ALL NEEDS MET. WILL ENDORSE TO DAY SHIFT FOR CONTINUITY OF CARE.
[2017-04-24] MEDS: ACETYLCYSTEINE 10% SOLN 400 MG/4 ML VIAL NEB SCH ×2 (07:28→14:58)
[2017-04-24] MEDS: MEROPENEM 500 MG in IV NS 0.9% 50 ML IV SCH ×3 (07:42→21:55)
[2017-04-24] MEDS: BLOOD SUGAR DIAGNOSTIC 1 EACH STRIP IN SCH ×4 (07:42→22:22)
[2017-04-24] MEDS: GUAIFENESIN LA 600 MG TABLET.SA PO SCH ×2 (08:01→21:34)
[2017-04-24] MEDS: DOCUSATE SODIUM 100 MG CAPSULE PO SCH ×2 (08:01→17:19)
[2017-04-24] MEDS: ATORVASTATIN 40 MG TABLET PO SCH (08:01)
[2017-04-24] MEDS: methylPREDNISolone SOD SUCC 40 MG/ML VIAL IV SCH ×3 (08:01→17:19)
[2017-04-24] MEDS: VITAMINS A AND D 56.7 GM TUBE TP SCH (08:02)
[2017-04-24] MEDS: AMIODARONE HCL 200 MG TABLET PO SCH ×3 (08:02→17:21)
[2017-04-24] MEDS: FLUTICASONE PROPIONATE 16 GM BOTTLE NS SCH (08:03)
[2017-04-24] MEDS: MUPIROCIN OINT 2% 22 GM TUBE SCH ×2 (08:03→21:35)
[2017-04-24] MEDS: FLUTICASONE/VILANTEROL 1 EACH BLST.W.DEV IH SCH (08:03)
--- NOTE | 2017-04-24 10:36 | NUR ---
PT STATES HE FEELS SHORT OF BREATH AND HIS HAVING DIFFICULTY BREATHING AND REQUESTS FOR BIPAP MASK. RT NOTIFIED, MASK APPLIED WITH ORIGINAL SETTINGS.
--- NOTE | 2017-04-24 11:27 | NUR ---
PT BACK ON 3L NC PER HIS OWN REQUEST. TOLERATING FINE, SAT AT 94% HE PRODUCES MODERATE THICK SECRETIONS AND IS ABLE TO CLEAR HIS OWN AIRWAY (HE IS ON MUCINEX).
[2017-04-24] MEDS: HYDROCODONE/APAP 5/325MG 1 EACH TABLET PO PRN ×2 (12:15→21:54)
[2017-04-24] MEDS: MAGNESIUM HYDROXIDE 30 ML UDC PO PRN (13:19)
[2017-04-24] MEDS: INSULIN REGULAR, HUMAN 100 UNIT/ML 3 ML VIAL SQ PRN ×2 (17:23→22:20)
[2017-04-24] MEDS: RIVAROXABAN 10 MG TABLET PO SCH (17:23)
--- NOTE | 2017-04-24 17:34 | NUR ---
DR. JANICE CALDERONAYS TO DOWNGRADE TO TELE STATUS. HOUSE SUP NOTIFIED.
--- NOTE | 2017-04-24 19:00 | NUR ---
RN NOTES, PATIENT ON BED A/O X3 WATCHING TV, SR WITH PVC IN TELE MONITOR, BREATHING EVEN AND UNLABORED NO S/S OF ANY PAIN, SOB OR DISCOMFORT, ON 3LPM VIA NC SATURATION LEVEL @93% AT THIS TIME, EXPLAIN PLAN OF CARE TO PATIENT, ASKED A WHAT TIME HE WISH BED BATH, AND REMANDED TO CALL LIGHT FOR ASSISTANCE, , CALL LIGHT W/I REACH, COMMODE AT BEDSIDE, BED LOCKED IN THE LOWEST POSSIBLE POSITION, WILL CONTINUE TO M,ONITOR CLOSELY.
--- NOTE | 2017-04-24 19:12 | NUR ---
PT TRANSFERRED TO TELE 111, REPORT GIVEN AND ALL BELONGINGS INCLUDING DENTURES, CELL PHONE AND UNDERGRADUATE INTERNSHIP TRANSFERRED WITH PATIENT.
--- NOTE | 2017-04-24 21:00 | NUR ---
PHARMACY CLINICAL COORDINATOR - REC'D REPORT FROM [facility] TO TAKE OVER PT. CARE. PT. IS CURRENTLY ON O2/3L/NC & HAS AUDIBLE CRACKLES NOTED JUST STANDING NEXT TO HIM. PT. WAS TX'D FROM ICU AT CHANGE OF SHIFT TONIGHT. A&OX4. VSS. AFEBRILE. PT. USES URINAL & BSC. NEEDS RN ASSIST. RUE MIDLINE DL HAS BOTH PORTS PATENT TO FLUSH. PT.IS ON A CARDIAC DIET & HAS + BS'S X 4 QUAD. ALL PULSES PALPABLE X 4 EXT. ISOLATION FOR MRSA/NARES. CONT. POC.
[2017-04-24] MEDS: INSULIN DETEMIR 100 UNIT/ML CARTRIDGE SQ SCH (22:17)
--- NOTE | 2017-04-24 22:47 | NUR ---
PLACED BIPAP AT NIGHT PER MD'S ORDER. WILL CONTINUE TO MONITOR THE PT, CHENCHO CLARKE NOTIFIED
[2017-04-25] VITALS: BP 108/47
--- NOTE | 2017-04-25 | NUR ---
GUM PULLER - PT. C/O ABD. PAIN & WAS ADM. NORCO ONE TAB AT 21:54. GOAL MET. PT. WAS ADM. LEVEMIR 85UNITS & 2 UNITS OF REG. INSULIN FOR A BS OF #153. PT.WAS PLACED ON BIPAB AT 22:47 SETTINGS AT I:E-20/10,RATE OF 12 & 30%. PT. REMOVED BIPAP AT 23:30 & WAS PLACED BACK ON O2/3L/NC. O2 SATS ARE >93%. CRACKLES ARE STILL THERE, BUT LESS AUDIBLE THAN START OF SHIFT. PT.IS RESTING W/EYES CLOSED AT PRESENT. CONT. POC.
[2017-04-25] MEDS: ACETYLCYSTEINE 10% SOLN 400 MG/4 ML VIAL NEB SCH ×4 (00:28→23:31)
[2017-04-25] MEDS: IPRATROPIUM NEB FS 0.5 MG/2.5 ML AMPUL.NEB NEB SCH ×4 (00:37→19:55)
[2017-04-25] MEDS: ALBUTEROL HALF STRENGTH 1.25 MG/3 ML VIAL.NEB IH SCH ×4 (00:37→19:55)
[2017-04-25 04:00] VITALS: BP 147/87
[2017-04-25] MEDS: MEROPENEM 500 MG in IV NS 0.9% 50 ML IV SCH ×3 (06:40→22:29)
[2017-04-25 07:13] LABS: HEMATOCRIT 44 % (39-51); HEMOGLOBIN 13.6 g/dL (13.5-17.5); MEAN CORPUSCULAR HEMOGLOBIN 23 PG (26.0-33.0); MEAN CORPUSCULAR HGB CONC 31 g/dl (31.0-36.0); MEAN CORPUSCULAR VOLUME 73 fL (80-96); PLATELET COUNT (AUTO) 225 /CMM (150-450); RDW COEFFICIENT OF VARIATION 24.8 (11.5-15.0); WHITE BLOOD COUNT (AUTO) 23.5 K/uL (4.3-11.0)
[2017-04-25 07:36] LABS: CALCIUM, SERUM 8.9 mg/dL (8.5-10.1); CREATININE 0.9 mg/dL (0.6-1.3)
--- NOTE | 2017-04-25 07:40 | NUR ---
BLOOD GLUCOSE NOTE FIRST ACCU CHECK 41, SECOND 29. PROVIDING APPLE JUICE AND PO INTAKE AT THIS TIME. WILL REASSESS.
[2017-04-25 08:00] VITALS: BP 130/72
[2017-04-25] MEDS: BLOOD SUGAR DIAGNOSTIC 1 EACH STRIP IN SCH ×4 (08:33→21:30)
[2017-04-25] MEDS: methylPREDNISolone SOD SUCC 40 MG/ML VIAL IV SCH ×3 (08:34→17:26)
[2017-04-25] MEDS: AMIODARONE HCL 200 MG TABLET PO SCH ×3 (08:35→17:28)
[2017-04-25] MEDS: DOCUSATE SODIUM 100 MG CAPSULE PO SCH ×2 (08:35→17:27)
[2017-04-25] MEDS: GUAIFENESIN LA 600 MG TABLET.SA PO SCH ×2 (08:35→21:37)
[2017-04-25] MEDS: ATORVASTATIN 40 MG TABLET PO SCH (08:35)
[2017-04-25] MEDS: FLUTICASONE PROPIONATE 16 GM BOTTLE NS SCH (08:36)
[2017-04-25] MEDS: FLUTICASONE/VILANTEROL 1 EACH BLST.W.DEV IH SCH (08:36)
[2017-04-25] MEDS: MUPIROCIN OINT 2% 22 GM TUBE SCH ×2 (08:37→21:41)
[2017-04-25] MEDS: VITAMINS A AND D 56.7 GM TUBE TP SCH (08:37)
[2017-04-25] MEDS: INSULIN REGULAR, HUMAN 100 UNIT/ML 3 ML VIAL SQ PRN ×4 (08:47→21:31)
[2017-04-25 08:55] LABS: LYMPHOCYTES % (MANUAL) 1 % (16-48); MONOCYTES % (MANUAL) 6 % (0-11.0); NEUTROPHILS % (MANUAL) 93 (42-76)
--- NOTE | 2017-04-25 09:32 | NUR ---
RN NOTE SEEN AND EXAMINED BY DR. JORGE AND DR. CAMACHO. BOTH MD AWARE OF HYPOGLYCEMIA THIS AM, RESOLVE BY BREAKFAST CONSUMPTION. ALSO AWARE OF WBC 23,000.
[2017-04-25 09:57] LABS: ABG BASE EXCESS 4.9 mmol/L; ABG OXYGEN SATURATION 94.5 % (92.0-98.5); ABG PCO2 48.2 mmHg (35.0-45.0); ABG PH 7.417 (7.350-7.450); ABG PO2 76.8 mmHg (75.0-100.0); AaDO2 80.5 mmHg; COHb 1.5 % (0.5-1.5); MetHb 0.7 % (0.0-1.5); O2Hb 92.4 % (94.0-97.0); SITE, ABG Left Radial; VENT MODE, BG 3L NC
[2017-04-25] MEDS ORDERED: FEE PK DOSING 1 MIN EA MC ONE (11:18)
[2017-04-25 12:00] VITALS: BP_SYST 144; BP_DIAS 65; BP_DIAS 67
[2017-04-25] MEDS ORDERED: VANCOMYCIN 1.25 GM in IV D5W 500 ML IV SCH (12:00)
--- NOTE | 2017-04-25 14:36 | NUR ---
CALL PHARM REGARDING VANCO 1200- PENDING DELIVERY
[2017-04-25 16:00] VITALS: BP 140/75
[2017-04-25] MEDS: RIVAROXABAN 10 MG TABLET PO SCH (17:41)
--- NOTE | 2017-04-25 19:12 | NUR ---
MI ADMIN @ 1730PM- SPOKE TO PHARMACIST JERMAN ABOUT LATE ADMIN AND NEED TO CHANGE SECOND DOSE TIME AND TOMORROW TROUGH TIME. INFORMED NIGHT NURSE.
--- NOTE | 2017-04-25 19:30 | NUR ---
RN/TELE NOTES: RECEIVED PT. IN BED W/ HOB ELEVATED . A/O X 4. W/ O2 @ 3LPM VIA N/C SAT 99%. NOT IN ANY RESPIRATORY DISTRESS NOTED. VIBHA ML PATENT AND INTACT W/ NO S/S OF INFILTRATION/INFECTION NOTED. VOIDS IN URINAL. CALL LIGHT W/ REACH. ALL NEEDS MEET. WILL CONTINUE TO MONITOR.
--- NOTE | 2017-04-25 19:34 | NUR ---
end of shift resting in bed. all needs met. patient clean. breathing stable. LOC wnl. no complications with iv. verbalized thanks. call light in reach. gave report to night nurse.
[2017-04-25 20:00] VITALS: BP 146/76
[2017-04-25] MEDS: INSULIN DETEMIR 100 UNIT/ML CARTRIDGE SQ SCH (21:35)
--- NOTE | 2017-04-25 23:20 | NUR ---
TELE/RN NOTES: ASKED PT. IF HE WANTED BIPAP BUT PT. REFUSED. WILL CONTINUE TO MONITOR. CALL LIGHT W/ REACH.
[2017-04-25] MEDS: IPRATROPIUM NEB FS 0.5 MG/2.5 ML AMPUL.NEB NEB PRN (23:31)
[2017-04-25] MEDS: ALBUTEROL FS 2.5 MG/3 ML VIAL.NEB NEB PRN (23:31)
[2017-04-26] VITALS: BP 147/86
[2017-04-26] MEDS: IPRATROPIUM NEB FS 0.5 MG/2.5 ML AMPUL.NEB NEB SCH ×4 (01:30→20:09)
[2017-04-26] MEDS: ALBUTEROL HALF STRENGTH 1.25 MG/3 ML VIAL.NEB IH SCH ×4 (01:30→20:09)
[2017-04-26 04:00] VITALS: BP 134/70
[2017-04-26] MEDS: VANCOMYCIN 1.25 GM in IV D5W 500 ML IV SCH ×2 (04:27→18:00)
[2017-04-26] MEDS: BLOOD SUGAR DIAGNOSTIC 1 EACH STRIP IN SCH ×4 (06:37→21:13)
--- NOTE | 2017-04-26 06:44 | NUR ---
TELE/RN NOTES: BS 140. PT. REFUSED 2 UNITS OF INSULIN. EXPLAINED RISKS STILL REFUSED X 3. PT. IN BED WATCHING TV. NOT IN ANY RESPIRATORY DISTRESS . CALL LIGHT W/REACH. REPORT GIVEN TO NEXT SHIFT NURSE.
[2017-04-26] MEDS: MEROPENEM 500 MG in IV NS 0.9% 50 ML IV SCH ×2 (06:48→15:05)
[2017-04-26 07:30] LABS: EOSINOPHILS # (AUTO) 0.2 /CMM (0.0-0.7); EOSINOPHILS % (AUTO) 1.4 % (0.0-6.0); HEMATOCRIT 42 % (39-51); HEMOGLOBIN 12.9 g/dL (13.5-17.5); LYMPHOCYTES # (AUTO) 0.5 /CMM (0.8-4.8); LYMPHOCYTES % (AUTO) 4.4 % (20.0-44.0); MEAN CORPUSCULAR HEMOGLOBIN 22 PG (26.0-33.0); MEAN CORPUSCULAR HGB CONC 31 g/dl (31.0-36.0); MEAN CORPUSCULAR VOLUME 72 fL (80-96); MONOCYTES # (AUTO) 0.3 /CMM (0.1-1.30); MONOCYTES % (AUTO) 2.2 % (2.0-12.0); NEUTROPHILS # (AUTO) 11.3 /CMM (1.8-8.9); PLATELET COUNT (AUTO) 176 /CMM (150-450); RDW COEFFICIENT OF VARIATION 23.9 (11.5-15.0); RED BLOOD CELL COUNT(AUTO) 5.83 MIL/uL (4.5-6.0); WHITE BLOOD COUNT (AUTO) 12.3 K/uL (4.3-11.0)
[2017-04-26] MEDS: ACETYLCYSTEINE 10% SOLN 400 MG/4 ML VIAL NEB SCH ×3 (07:31→23:30)
[2017-04-26 08:00] VITALS: BP 140/69
[2017-04-26 08:05] LABS: CALCIUM, SERUM 8.8 mg/dL (8.5-10.1); CREATININE 0.8 mg/dL (0.6-1.3); POTASSIUM 4.9 mmol/L (3.5-5.1)
[2017-04-26] MEDS: GUAIFENESIN LA 600 MG TABLET.SA PO SCH ×2 (09:00→21:01)
[2017-04-26 09:13] LABS: LYMPHOCYTES % (MANUAL) 1 % (16-48); MONOCYTES % (MANUAL) 2 % (0-11.0); NEUTROPHILS % (MANUAL) 97 (42-76)
[2017-04-26] MEDS: AMIODARONE HCL 200 MG TABLET PO SCH ×3 (11:12→17:59)
[2017-04-26] MEDS: DOCUSATE SODIUM 100 MG CAPSULE PO SCH ×2 (11:12→17:59)
[2017-04-26] MEDS: methylPREDNISolone SOD SUCC 40 MG/ML VIAL IV SCH ×3 (11:12→17:57)
[2017-04-26] MEDS: ATORVASTATIN 40 MG TABLET PO SCH (11:12)
[2017-04-26] MEDS: HYDROCODONE/APAP 5/325MG 1 EACH TABLET PO PRN (11:13)
[2017-04-26] MEDS: FLUTICASONE PROPIONATE 16 GM BOTTLE NS SCH (11:15)
[2017-04-26] MEDS: FLUTICASONE/VILANTEROL 1 EACH BLST.W.DEV IH SCH (11:15)
[2017-04-26] MEDS: VITAMINS A AND D 56.7 GM TUBE TP SCH (11:16)
[2017-04-26] MEDS: MUPIROCIN OINT 2% 22 GM TUBE SCH ×2 (11:16→21:01)
[2017-04-26 12:00] VITALS: BP 138/70
[2017-04-26 16:00] VITALS: BP 146/80
--- NOTE | 2017-04-26 16:50 | NUR ---
PATIENT SATURATION AT REST 87%,MD MADE AWARE,WILL REQUEST HOME O2 PER DR. PASCUAL.
[2017-04-26] MEDS: RIVAROXABAN 10 MG TABLET PO SCH (17:58)
[2017-04-26] MEDS: INSULIN REGULAR, HUMAN 100 UNIT/ML 3 ML VIAL SQ PRN ×2 (18:01→21:14)
--- NOTE | 2017-04-26 19:00 | NUR ---
Handoff report to night nurse.
--- NOTE | 2017-04-26 19:30 | NUR ---
MS/RN NOTES: RECEIVED PT. IN BED SLEEPING W/ RESPIRATIONS EVEN AND UNLABORED. NOT IN ANY ACUTE RESPIRATORY DISTRESS NOTED. A/O X 4. ABLE TO MAKE NEEDS KNOWN. HAS A VIBHA ML SITE APPEARS TO BE W/ +3 PITTING EDEMA AROUND THE MIDLINE SITE. IV VANCO STOPPED. SKIN COOL TO TOUCH. CALL LIGHT W/REACH. WILL CONTINUE TO MONITOR. ADDENDUM 8:20 P.M. CALLED EPIC C/O WATSON VAN TO INFORM HIM ABOUT THE MIDLINE SITE INFILTRATED. AND PT. IS [place]. TO BE DISCHARGED ON 04/27/17. W/ NEW ORDERS TO D/C THE MID LINE NOTED AND CARRIED OUT. MID LINE REMOVED W/ TIP INTACT. NO BLEEDING NOTED AROUND THE SITE. CALL LIGHT W/ REACH.
[2017-04-26 20:00] VITALS: BP 134/82
--- NOTE | 2017-04-26 20:00 | NUR ---
RN NOTES PER PATIENT REQUEST, SPOKE TO THE PATIENT'S BROTHER LUDWIN [phone]. PER LUDWIN, HE IS UNAVAILABLE TONIGHT FOR O2 DELIVERY. WATSON RODARTE MADE AWARE, WITH ORDER TO HOLD DC AT THIS TIME, CM TO FOLLOW UP IN THE AM
[2017-04-26] MEDS: INSULIN DETEMIR 100 UNIT/ML CARTRIDGE SQ SCH (21:15)
[2017-04-27] MEDS: ALBUTEROL HALF STRENGTH 1.25 MG/3 ML VIAL.NEB IH SCH ×3 (02:01→14:30)
[2017-04-27] MEDS: IPRATROPIUM NEB FS 0.5 MG/2.5 ML AMPUL.NEB NEB SCH ×3 (02:02→14:31)
[2017-04-27 04:00] VITALS: BP 100/61
--- NOTE | 2017-04-27 05:40 | NUR ---
RN/MS NOTES: PT. REQUESTED TO BE OFF THE BIPAP. PT. IS ON 3LPM VIA N/C SAT. 98 %. CALL LIGHT W/ REACH. ALL NEEDS MEET AND ATTENDED. WILL CONTINUE TO MONITOR.
[2017-04-27] MEDS: BLOOD SUGAR DIAGNOSTIC 1 EACH STRIP IN SCH ×2 (06:35→12:22)
--- NOTE | 2017-04-27 06:53 | NUR ---
RN/MS NOTES: PT. IS IN BED A/O X 3. W/ O2@ 3LPM VIA N/C SAT 98 %. NOT IN ANY RESPIRATORY DISTRESS NOTED. ALL NEEDS MEET. USES URINAL. HL ON LFA # 22 PATENT AND INTACT W/NO S/S OF INFECTION/INFILTRATION NOTED. WILL ENDORSE PM SHIFT FOR RITA.
[2017-04-27 07:21] LABS: CALCIUM, SERUM 9.2 mg/dL (8.5-10.1); CREATININE 0.7 mg/dL (0.6-1.3); POTASSIUM 5.4 mmol/L (3.5-5.1)
--- NOTE | 2017-04-27 07:30 | NUR ---
pt is A/O NO S/S OF DISTRESS.BREATHING ON 3L O2 VIA N.C ,I.V SITE CDI AND PATENT.NO C/O PAIN,SAFETY MEASURES IN PLACE.BED IN LOW AND LOCKED POSITION.WILL CONTINUE TO MONITOR FOR CHANGES
[2017-04-27 08:00] VITALS: BP 124/74
[2017-04-27] MEDS: ACETYLCYSTEINE 10% SOLN 400 MG/4 ML VIAL NEB SCH ×2 (08:00→14:30)
[2017-04-27] MEDS: FLUTICASONE/VILANTEROL 1 EACH BLST.W.DEV IH SCH (09:00)
[2017-04-27] MEDS: methylPREDNISolone SOD SUCC 40 MG/ML VIAL IV SCH ×2 (09:24→13:34)
[2017-04-27] MEDS: ATORVASTATIN 40 MG TABLET PO SCH (09:24)
[2017-04-27] MEDS: AMIODARONE HCL 200 MG TABLET PO SCH ×2 (09:24→13:37)
[2017-04-27] MEDS: DOCUSATE SODIUM 100 MG CAPSULE PO SCH (09:24)
[2017-04-27] MEDS: MUPIROCIN OINT 2% 22 GM TUBE SCH (09:25)
[2017-04-27] MEDS: FLUTICASONE PROPIONATE 16 GM BOTTLE NS SCH (09:25)
[2017-04-27] MEDS: GUAIFENESIN LA 600 MG TABLET.SA PO SCH (09:29)
[2017-04-27] MEDS: VITAMINS A AND D 56.7 GM TUBE TP SCH (09:29)
[2017-04-27] MEDS ORDERED: SODIUM POLYSTYRENE SULFONATE 15 G/60 ML BOTTLE PO ONE (11:30)
[2017-04-27 12:00] VITALS: BP 124/74
[2017-04-27] MEDS: INSULIN REGULAR, HUMAN 100 UNIT/ML 3 ML VIAL SQ PRN (12:24)
[2017-04-27 13:37] VITALS: BP 124/74
[2017-04-27] MEDS: HYDROCODONE/APAP 5/325MG 1 EACH TABLET PO PRN (15:35)
--- NOTE | 2017-04-27 16:00 | NUR ---
pt d/c home with family.all m.d orders noted and carried out.pt given all belongings and discharge instructions.
== END 2017-04-27 15:42 | disposition home health service (06) | DRG 280 ==
LOC: ER 10:18 → ICU 11:13 → TELE1 04-20 15:23 → TELE-TD 04-20 17:11 → ICU 04-21 14:37 → TELE1 04-24 18:02 → MEDSG1 04-26 15:01
PROVIDERS: ADMIT Internal Medicine; ATTEND Internal Medicine
PROC: 5A09457 Assistance with Respiratory Ventilation, 24-96 Consecutive Hours, Continuous Positive Airway Pressure (ICD-10-PCS; principal; 2017-04-15)
PROC: 05H533Z Insertion of Infusion Device into Right Subclavian Vein, Percutaneous Approach (ICD-10-PCS; 2017-04-16)
PROC: 5A2204Z Restoration of Cardiac Rhythm, Single (ICD-10-PCS; 2017-04-19)
DX: I11.0 Hypertensive heart disease with heart failure (principal); I21.4 Non-ST elevation (NSTEMI) myocardial infarction; J96.21 Acute and chronic respiratory failure with hypoxia; G93.1 Anoxic brain damage, not elsewhere classified; I48.92 Unspecified atrial flutter; I48.91 Unspecified atrial fibrillation; E11.51 Type 2 diabetes mellitus with diabetic peripheral angiopathy without gangrene; E11.649 Type 2 diabetes mellitus with hypoglycemia without coma; J96.22 Acute and chronic respiratory failure with hypercapnia; J44.1 Chronic obstructive pulmonary disease with (acute) exacerbation; E11.65 Type 2 diabetes mellitus with hyperglycemia; E66.01 Morbid (severe) obesity due to excess calories; I50.23 Acute on chronic systolic (congestive) heart failure; D72.829 Elevated white blood cell count, unspecified; E78.5 Hyperlipidemia, unspecified; E83.42 Hypomagnesemia; E87.5 Hyperkalemia; K21.9 Gastro-esophageal reflux disease without esophagitis; Z87.891 Personal history of nicotine dependence; Z99.81 Dependence on supplemental oxygen; Z68.29 Body mass index [BMI] 29.0-29.9, adult; Z22.322 Carrier or suspected carrier of Methicillin resistant Staphylococcus aureus; I42.9 Cardiomyopathy, unspecified; Z79.899 Other long term (current) drug therapy; Z79.4 Long term (current) use of insulin
CPT/HCPCS: 31720; 36415; 36569; 36600; 71010-TC; 71250-TC; 80048-TC; 80053-TC; 80061-TC; 80076-TC; 82803-TC; 82962-TC; 83735-TC; 83880; 84100-TC; 84443-TC; 84484-TC; 85025-TC; 85730-TC; 87040-TC; 87081-TC; 94660; 94799-TC; A4216; A4606; J0282; J0456; J1120; J1815; J1940; J1956; J2185; J2704; J2920; J2930; J3370; J3475; J3490; J7050; J7060; Z7610

== ENCOUNTER 2017-05-05 13:24 | Outpatient (CLI) | payer MEDICARE, OTHER ==
[~2017-05-05 13:24] MED LIST changes: -FLUC100T8 PO; -INSU100V7 SQ
[2017-05-05 13:34] VITALS: BP 118/60
== END 2017-05-05 23:59 | disposition home or self-care (01) ==
LOC: MSC 13:24
PROVIDERS: ATTEND Internal Medicine
DX: I11.0 Hypertensive heart disease with heart failure (principal); I50.22 Chronic systolic (congestive) heart failure; I48.91 Unspecified atrial fibrillation; J96.21 Acute and chronic respiratory failure with hypoxia; E78.5 Hyperlipidemia, unspecified; J44.9 Chronic obstructive pulmonary disease, unspecified; K21.9 Gastro-esophageal reflux disease without esophagitis; I25.10 Atherosclerotic heart disease of native coronary artery without angina pectoris; I25.2 Old myocardial infarction; E66.01 Morbid (severe) obesity due to excess calories; E43 Unspecified severe protein-calorie malnutrition; E88.09 Other disorders of plasma-protein metabolism, not elsewhere classified; M62.50 Muscle wasting and atrophy, not elsewhere classified, unspecified site

== ENCOUNTER 2017-10-13 23:20 | Inpatient (IN) | payer MEDICARE, BC ==
[~2017-10-13] VITALS: Ht 182.9 cm; Wt 109.8 kg
--- NOTE | 2017-10-13 23:22 | NUR ---
LYNDSEY FROM HOME DT RESPIRATORY DISTRESS. PER REPORT PATIENT'S O2 WAS ON 70S UPON RESCUE ARRIVAL. PATIENT RECEIVED ON CPAP. APPEARS IN DISTRESS. PATIENT REMAINS AWAKE AND ALERT. SKIN IS WARM TO TOUCH AND NON DIAPHORETIC. NO CHEST PAIN. AFEBRILE. MD VILLAGOMEZ AT BEDSIDE
--- NOTE | 2017-10-13 23:25 | NUR ---
RT PLACED PT ON BIPAP 08/11 RATE 16 100%
[2017-10-13] MEDS ORDERED: ALBUTEROL FS 2.5 MG/0.5 ML VIAL.NEB ONE (23:29)
[2017-10-13] MEDS ORDERED: IPRATROPIUM NEB FS 0.5 MG/2.5 ML AMPUL.NEB ONE (23:29)
[2017-10-13] MEDS ORDERED: IPRATROPIUM NEB FS 0.5 MG/2.5 ML AMPUL.NEB NEB ONE (23:30)
[2017-10-13] MEDS ORDERED: FUROSEMIDE 40 MG/4 ML VIAL IV ONE (23:30)
[2017-10-13] MEDS ORDERED: ALBUTEROL FS 2.5 MG/0.5 ML VIAL.NEB NEB ONE (23:30)
[2017-10-13] MEDS ORDERED: methylPREDNISolone SOD SUCC 125 MG/2ML VIAL IV ONE (23:30)
[2017-10-13 23:35] VITALS: BP 158/75
[2017-10-13 23:39] LABS: BASOPHILS % (AUTO) 0.4 % (0.0-2.0); EOSINOPHILS % (AUTO) 5.9 % (0.0-6.0); HEMATOCRIT 33 % (39-51); HEMOGLOBIN 10.6 g/dL (13.5-17.5); LYMPHOCYTES # (AUTO) 1.1 /CMM (0.8-4.8); LYMPHOCYTES % (AUTO) 18.4 % (20.0-44.0); MEAN CORPUSCULAR HGB CONC 33 g/dl (31.0-36.0); MEAN CORPUSCULAR VOLUME 76 fL (80-96); MONOCYTES # (AUTO) 0.5 /CMM (0.1-1.30); MONOCYTES % (AUTO) 7.8 % (2.0-12.0); NEUTROPHILS # (AUTO) 4.1 /CMM (1.8-8.9); NEUTROPHILS % (AUTO) 67.5 % (43.0-81.0); PLATELET COUNT (AUTO) 217 /CMM (150-450); RDW COEFFICIENT OF VARIATION 18.8 (11.5-15.0)
[2017-10-13] MEDS ORDERED: methylPREDNISolone SOD SUCC 125 MG/2ML VIAL ONE (23:49)
[2017-10-13] MEDS ORDERED: FUROSEMIDE 40 MG/4 ML VIAL ONE (23:49)
[2017-10-13 23:50] LABS: CALCIUM, SERUM 8.9 mg/dL (8.5-10.1); CARBON DIOXIDE 30 mmol/L (21-32); CHLORIDE 104 mmol/L (98-107); CREATININE 1.6 mg/dL (0.6-1.3); GLUCOSE 257 mg/dL (74-106); POTASSIUM 4.5 mmol/L (3.5-5.1); SODIUM SERUM 141 mmol/L (136-145); UREA NITROGEN, BLOOD 47 mg/dL (7-18)
[2017-10-13 23:55] LABS: INR 1.38 (0.87-1.13)
--- NOTE | 2017-10-13 23:55 | NUR ---
RT Patient placed on BiPAP per MD orders, tolerating given settings, given in-line HHN treatments. Continue to monitor progress. Addendum: 10/13/17 at 2356 by KLAUDIA RATLIFF RT Amended: Links added.
[2017-10-14] VITALS (24 sets, daily range): BP systolic 106–150; BP diastolic 42–89
[2017-10-14] LABS: TROPONIN I < 0.017 ng/mL (0.00-0.056)
[2017-10-14 00:02] LABS: ALANINE AMINOTRANSFERASE 32 U/L (12-78); ALBUMIN 3.7 g/dL (3.4-5.0); ALKALINE PHOSPHATASE 108 U/L (46-116); ASPARTATE AMINOTRANSFERASE 24 U/L (15-37); B-TYPE NATRIURETIC PEPTIDE 206 PG/ML (0-125); BILIRUBIN,DIRECT 0.1 mg/dL (0.0-0.2); BILIRUBIN,TOTAL 0.5 mg/dL (0.2-1.0); TOTAL PROTEIN, SERUM 7.7 g/dL (6.4-8.2)
[2017-10-14 00:39] LABS: ABG BASE EXCESS -1.4 mmol/L; ABG OXYGEN SATURATION 99.6 % (92.0-98.5); ABG PCO2 43.1 mmHg (35.0-45.0); ABG PH 7.363 (7.350-7.450); ABG PO2 558.7 mmHg (75.0-100.0); AaDO2 111.2 mmHg; COHb 1.1 % (0.5-1.5); MetHb 0.6 % (0.0-1.5); O2Hb 97.9 % (94.0-97.0); PEEP,BG 5 cm H2O; SITE, ABG Right Radial; VENT MODE, BG st 15/5/r16/100%
--- NOTE | 2017-10-14 00:40 | NUR ---
ER MD ORDER WEAN OFF OF BIPAP. PLACED ON SIMPLE MASK 10L 02 WITH O2 SATURATION OF 100% TOLERATING WELL
--- NOTE | 2017-10-14 00:50 | NUR ---
MD PASCUAL ORDER FOR TITRATE 02 DOWN FOR 02 SATURATION TO BE 95%-92%. ON SIMPLE MASK 5L SATURATION OF 97%.
--- NOTE | 2017-10-14 00:52 | NUR ---
ATTEMPTED TO CALL ICU. WILL CALL AGAIN FOR REPORT
[2017-10-14] MEDS: IPRATROPIUM NEB FS 0.5 MG/2.5 ML AMPUL.NEB NEB SCH ×4 (01:52→19:27)
[2017-10-14] MEDS: ALBUTEROL FS 2.5 MG/0.5 ML VIAL.NEB NEB SCH ×4 (01:52→19:27)
--- NOTE | 2017-10-14 02:00 | NUR ---
MANAGER ASSISTED LIVING INITIAL NOTE PT RECEIVED VIA RNEY AWAKE AND ALERT. TRANSFERRED SAFELY TO ROOM 258. A/O X3 AND ABLE TO VERBALIZE NEEDS. ON 6L OF O2 VIA FACE MASK AND SATURATING 100%. NO C/O PAIN OR DISCOMFORT NOTED. BREATHING UNLABORED WITH SHORTNESS OF BREATH NOTED. LUNG SOUNDS NOTED WITH EXPIRATORY WHEEZING. PRODUCTIVE COUGH WITH WHITE/CLEAR, THICK SECRETIONS NOTED. HOB ELEVATED AND ON ASPIRATION PRECAUTIONS. WITH ORDERS TO TITRATE O2 DOWN MAINTAINING O2SAT>92%. 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 IV VIBHA #20/ L HAND #20 DRY AND FLUSHING WELL. CALL LIGHT WITHIN REACH. WILL CONTINUE TO MONITOR.
[2017-10-14 02:34] LABS: ABG BASE EXCESS 0.3 mmol/L; ABG OXYGEN SATURATION 96.3 % (92.0-98.5); ABG PCO2 46.6 mmHg (35.0-45.0); ABG PH 7.365 (7.350-7.450); ABG PO2 97.9 mmHg (75.0-100.0); AaDO2 162.7 mmHg; COHb 0.5 % (0.5-1.5); MetHb 0.5 % (0.0-1.5); O2Hb 95.3 % (94.0-97.0); SITE, ABG Right Radial; VENT MODE, BG SIMPLE MASK
[2017-10-14] MEDS: methylPREDNISolone SOD SUCC 125 MG/2ML VIAL IV SCH ×3 (02:58→13:25)
[2017-10-14] MEDS: GUAIFENESIN LA 600 MG TABLET.SA PO SCH ×3 (02:58→21:19)
--- NOTE | 2017-10-14 07:17 | NUR ---
DYE HOUSE VAT WORKER CLOSING NOTE PT REMAINED STABLE DURING SHIFT. NO ACUTE DISTRESS NOTED. ON 2L OF O2 VIA NC AND TOLERATING WELL. ALL NEEDS ATTENDED TO PROMPTLY. CALL LIGHT WITHIN REACH. WILL ENDORSE TO NEXT SHIFT FOR CONTINUITY OF CARE.
--- NOTE | 2017-10-14 08:13 | NUR ---
WOUND CARE CONSULT: PT PRESENTS AMBULATORY AND CONTINENT WITH SCAB TO RT GREAT TOE, CALLUSES TO FEET AND SCAR TO RT HEEL. CURRENT PAULA SCORE IS 21. WILL SEE PRN. Addendum: 10/14/17 at 0813 by JULIUS LALA WNDNU Amended: Links added.
[2017-10-14] MEDS: CARVEDILOL 12.5 MG TABLET PO SCH ×2 (08:34→16:42)
[2017-10-14] MEDS: LISINOPRIL (10MG) 10 MG TABLET PO SCH (08:36)
[2017-10-14] MEDS: FUROSEMIDE 20 MG TABLET PO SCH ×2 (08:36→21:19)
[2017-10-14] MEDS: RIVAROXABAN 10 MG TABLET PO SCH (08:37)
[2017-10-14] MEDS: ATORVASTATIN 40 MG TABLET PO SCH (08:44)
[2017-10-14] MEDS: FLUTICASONE PROPIONATE 16 GM BOTTLE NS SCH (08:45)
[2017-10-14] MEDS ORDERED: INSULIN REGULAR, HUMAN 100 UNIT/ML 3 ML VIAL SQ PRN (09:30)
[2017-10-14] MEDS ORDERED: BLOOD SUGAR DIAGNOSTIC 1 EACH STRIP VI SCH (09:30)
[2017-10-14] MEDS ORDERED: DEXTROSE 50%-WATER 50 ML DISP.SYRIN IV PRN ×2 (09:30→12:30)
[2017-10-14] MEDS ORDERED: *INSULIN REGULAR(HUMULIN R)HUM 100 UNIT/ML VIAL SQ PRN (09:30)
--- NOTE | 2017-10-14 09:35 | NUR ---
RN NOTES BLOOD SUGAR CHECKED, NOTED 501MG/DL. PT JUST ATE AND SOLUMEDROL WAS JUST GIVEN FEW MINS AGO. INSULIN SS COVERAGE GIVEN. NOTIFIED.
--- NOTE | 2017-10-14 12:15 | NUR ---
RN NOTES PT BS NOTED 545MG/DL, ANNIKA BONDERIZER NOTIFIED. PER ANNIKA CHANGE TO AGGRESSIVE SLIDING SCALE AND GIVE LISPRO 20U X1. ORDERS NOTED AND CARRIED OUT. PHARMACY CONTACTED
[2017-10-14] MEDS ORDERED: INSULIN ASPART/LISPRO 100 UNIT/ML CARTRIDGE SQ ONE (12:30)
[2017-10-14] MEDS: BLOOD SUGAR DIAGNOSTIC 1 EACH STRIP IN SCH ×3 (12:41→21:19)
[2017-10-14] MEDS: INSULIN REGULAR, HUMAN 100 UNIT/ML 3 ML VIAL SQ PRN ×2 (12:42→17:27)
[2017-10-14] MEDS: LEVOFLOXACIN (500MG) 500 MG TABLET PO SCH (14:15)
--- NOTE | 2017-10-14 15:34 | NUR ---
patient is alert and oriented. He lives locally with his brother. He is ambulatory and independent with adl's. Has available DME: cane, shower chair and commode, no homehealth reported. Current plan is to dc back home once discharge. Addendum: 10/14/17 at 1534 by FELIPE HA RN Amended: Links added.
--- NOTE | 2017-10-14 15:35 | NUR ---
RN NOTES PER MD OK TO DOWNGRADE TO TELE. REPORT GIVEN TO TAMAR PAIZ
[2017-10-14] MEDS: UREA 10% -AHA 4% CREAM 57 GM TUBE TP SCH ×2 (15:36→16:41)
--- NOTE | 2017-10-14 15:39 | NUR ---
RN NOTES RECEIVED INSULIN LISPRO JUST NOW, BS CHECKED NOTED 472MG/DL. 20 UNITS INSULIN LISPRO GIVEN X1 PER ORDER.
--- NOTE | 2017-10-14 15:48 | NUR ---
RN NOTES SPOKE WITH DR TALAVERA, NOTIFIED ABOUT PT BLOOD SUGAR LEVEL. PER MD CHANGE SOLUMEDROL 40MG TID TO QD AND KEEP IN ICU UNTIL AM IF BS STABLE. WILL CHECK STAT LAB GLUCOSE LEVEL PER PROTOCOL. DINH CHARGE NURSE AWARE
[2017-10-14 16:51] LABS: CALCIUM, SERUM 9.4 mg/dL (8.5-10.1); CREATININE 1.8 mg/dL (0.6-1.3); POTASSIUM 4.1 mmol/L (3.5-5.1)
[2017-10-14] MEDS ORDERED: INSULIN LISPRO/ASPART 100 UNIT/ML CARTRIDGE SQ ONE (17:30)
--- NOTE | 2017-10-14 18:53 | NUR ---
RN NOTES PT RESTING IN BED COMFORTABLY ON UPRIGHT SITTING POSITION. ON RA TOLE WELL SATING 100%, NO SOB NOTED. PT VERBALIZED FEELING MUCH BETTER, BREATHING MUCH IMPROVED. DENIES PAIN/DISCOMFORT, ALL DUE MEDS GIVEN, NEEDS ATTENDED. GOOD SKIN CARE PROVIDED. BED COMMODE PROVIDED AT BEDSIDE. PT ABLE TO DO ADLS INDEPENDENTLY/ SBA. KEPT BELONGINGS AND CALL LIGHT WITHIN REACH.
--- NOTE | 2017-10-14 20:00 | NUR ---
RN INITIAL NOTES RECEIVED PT RESTING IN BED. ON RA TOLE WELL SATING 100%, NO SOB NOTED. PT DENIES PAIN/DISCOMFORT. BED COMMODE PROVIDED AT BEDSIDE. BED IN LOW LOCKED POSITION. KEPT BELONGINGS AND CALL LIGHT WITHIN REACH. WILL CONT TO MONITOR.
[2017-10-14] MEDS: *INSULIN REGULAR(HUMULIN R)HUM 100 UNIT/ML VIAL SQ PRN (21:36)
--- NOTE | 2017-10-14 21:36 | NUR ---
RN NOTES INSULIN REGULAR( HUMULIN R) 6 UNITS WAS ADMINISTERED TO PT PER SLIDING SCALE, PT BS WAS 273. I MANUALLY INPUTTED INSULIN BECAUSE I WAS UNABLE TO SCAN HS MEDICATION. SEVERAL OTHER RNS TRIED AND WE WERE UNABLE TO SCAN MEDICATION. ORDER WAS VERIFIED AND CORRECT DOSE WAS GIVEN. WILL ENDORSE TO AM RN AND NOTIFY PHARMACY.
[2017-10-14] MEDS ORDERED: INSULIN GLARGINE, 100 UNIT/ML CARTRIDGE SQ SCH (22:00)
[2017-10-14] MEDS ORDERED: INSULIN GLARGINE, 100 UNIT/ML CARTRIDGE SQ ONE (22:29)
[2017-10-15] VITALS (11 sets, daily range): BP systolic 125–147; BP diastolic 56–91
[2017-10-15] MEDS: ALBUTEROL FS 2.5 MG/0.5 ML VIAL.NEB NEB SCH ×4 (01:22→19:53)
[2017-10-15] MEDS: IPRATROPIUM NEB FS 0.5 MG/2.5 ML AMPUL.NEB NEB SCH ×4 (01:22→19:53)
[2017-10-15] MEDS: ACETAMINOPHEN 325 MG TABLET PO PRN (03:43)
[2017-10-15 05:00] LABS: HEMATOCRIT 30 % (39-51); HEMOGLOBIN 9.6 g/dL (13.5-17.5); LYMPHOCYTES # (AUTO) 0.6 /CMM (0.8-4.8); LYMPHOCYTES % (AUTO) 5.8 % (20.0-44.0); MEAN CORPUSCULAR HGB CONC 32 g/dl (31.0-36.0); MEAN CORPUSCULAR VOLUME 77 fL (80-96); MONOCYTES # (AUTO) 0.5 /CMM (0.1-1.30); MONOCYTES % (AUTO) 4.8 % (2.0-12.0); NEUTROPHILS # (AUTO) 9.9 /CMM (1.8-8.9); NEUTROPHILS % (AUTO) 89.4 % (43.0-81.0); PLATELET COUNT (AUTO) 201 /CMM (150-450); RDW COEFFICIENT OF VARIATION 18.2 (11.5-15.0)
--- NOTE | 2017-10-15 05:00 | NUR ---
RN CLOSING NOTE PT REMAINED STABLE DURING SHIFT. NO ACUTE DISTRESS NOTED. ON 3L OF O2 VIA NC AND TOLERATING WELL. ALL NEEDS ATTENDED TO PROMPTLY.
[2017-10-15 05:18] LABS: ALBUMIN 3.2 g/dL (3.4-5.0); BILIRUBIN,TOTAL 0.4 mg/dL (0.2-1.0); CREATININE 1.5 mg/dL (0.6-1.3); MAGNESIUM 2.2 mg/dL (1.8-2.4); POTASSIUM 3.7 mmol/L (3.5-5.1); TOTAL PROTEIN, SERUM 6.9 g/dL (6.4-8.2)
[2017-10-15 05:21] LABS: THYROID STIMULATING HORMONE 0.808 uIU/mL (0.358-3.74)
--- NOTE | 2017-10-15 05:50 | NUR ---
RN NOTES PT WAS TRANSFERRED TO [facility] BEDSIDE REPORT WAS GIVEN TO KENDELL. PT IN STABLE CONDITION
--- NOTE | 2017-10-15 05:52 | NUR ---
TELE NOTES: PT. WAS TRANSFER FROM ICU TO ROOM # 113 - 2. ON TELE MONITOR W/ SR 69 W/ FIRST DEGREE AV BLOCK W/ BBB. A/O X 4. ABLE TO MAKE NEEDS KNOWN. W/ O2@ 3LPM VIA N/C SAT. 95 %. W/ IV ON LH/VIBHA G 20 PATENT AND INTACT W/ NO S/S OF INFECTION/INFILTRATION NOTED. USES URINAL. DENIES ANY C/O CHEST PAIN OR SOB AT PRESENT. WILL CONTINUE TO MONITOR.
--- NOTE | 2017-10-15 07:26 | NUR ---
RN/TELE NOTES: REPORT GIVEN TO AM NURSE FOR RITA.
--- NOTE | 2017-10-15 07:32 | NUR ---
DISTRIBUTION SPEC OPENING NOTE RECEIVED BEDSIDE SBAR REPORT ON THE PATEINT. PATIENT IS A/O X4, COOPERATIVE . AWAKE AND RESPONSIVE IN BED. BED IS LOCKED IN LOWEST POSITION, SIDE RAILS UP X2. PATIENT IS CONTINENT, AMBULATORY AND ORIENTED TO OWN ABILITIES. DENIES PAIN/DISCOMFORT. CHEST RISING EQUALLY/BILATERALLY. CALL LIGHT WITHIN REACH. EDUCATED TO USE THE CALL LIGHT TO CALL FOR ASSISTANCE. VERBALIZED UNDERSTANDING. WILL CONTINUE TO ASSESS/MONITOR THROUGHOUT THE SHIFT.
[2017-10-15] MEDS: BLOOD SUGAR DIAGNOSTIC 1 EACH STRIP IN SCH ×4 (07:40→22:21)
[2017-10-15] MEDS: INSULIN REGULAR, HUMAN 100 UNIT/ML 3 ML VIAL SQ PRN ×3 (07:47→17:36)
[2017-10-15] MEDS: RIVAROXABAN 10 MG TABLET PO SCH (08:54)
[2017-10-15] MEDS: ATORVASTATIN 40 MG TABLET PO SCH (08:55)
[2017-10-15] MEDS: GUAIFENESIN LA 600 MG TABLET.SA PO SCH ×2 (08:56→22:21)
[2017-10-15] MEDS: LISINOPRIL (10MG) 10 MG TABLET PO SCH (08:57)
[2017-10-15] MEDS: FUROSEMIDE 20 MG TABLET PO SCH ×2 (08:57→22:22)
[2017-10-15] MEDS: CARVEDILOL 12.5 MG TABLET PO SCH ×2 (08:58→17:49)
[2017-10-15] MEDS: FLUTICASONE PROPIONATE 16 GM BOTTLE NS SCH (08:59)
[2017-10-15] MEDS: methylPREDNISolone SOD SUCC 125 MG/2ML VIAL IV SCH (09:01)
[2017-10-15] MEDS: UREA 10% -AHA 4% CREAM 57 GM TUBE TP SCH ×2 (09:10→17:49)
[2017-10-15] MEDS: LEVOFLOXACIN (500MG) 500 MG TABLET PO SCH (12:33)
--- NOTE | 2017-10-15 17:41 | NUR ---
PATIENT'S BG INCREASED AT 414MG/DL. REPEAT TEST PERFORMED. SECONS READING 404MG/DL. PROTOCOL INITIATED. HOSPITALIST NOTIFIED. INSULIN REGULAR 20 UNITS ADMINISTERED PER SCALE/PROTOCOL . PATIENT IS AWAKE AND RESPONSIVE. DENIES ANY DISCOMFORT. VS WNL. RECEIVED TELEPHONE ORDER FROM HOSPITALIST FOR STAT RANDOM BLOOD GLUCOSE BLOOD TEST. ORDER READ BACK AND VERIFIED. WILL CARRY OUT ORDERS RECEIVED.
[2017-10-15] MEDS ORDERED: INSULIN LISPRO/ASPART 100 UNIT/ML CARTRIDGE SQ ONE (18:30)
--- NOTE | 2017-10-15 19:05 | NUR ---
LISPRO NOT AVALIBLE ON THE FLOOR. WENT TO THE PHARMACY TO GET, PHARMACY CLOSED. SPOKE TO THE INSOLE LIP TURNER. PER INSOLE LIP TURNER ENDORSE TO THE SIGNS CLEANER NURSE TO ADMINISTER. DAY FITNESS COORDINATOR DOES NOT HAVE THE WILSON. CHARGE NURSE JACOB NOTIFIED
--- NOTE | 2017-10-15 19:07 | NUR ---
DATA WAREHOUSING MANAGER CLOSING NOTE GAVE BEDSIDE SBAR REPORT ON THE PATEINT. PATIENT IS A/O X4, COOPERATIVE . AWAKE AND RESPONSIVE IN BED. BED IS LOCKED IN LOWEST POSITION, SIDE RAILS UP X2. PATIENT IS CONTINENT, AMBULATORY AND ORIENTED TO OWN ABILITIES. DENIES PAIN/DISCOMFORT. CHEST RISING EQUALLY/BILATERALLY. CALL LIGHT WITHIN REACH. VS WNL. EDUCATED TO USE THE CALL LIGHT TO CALL FOR ASSISTANCE. VERBALIZED UNDERSTANDING. ENDORSED TO THE SENIOR WINDOWS SYSTEMS ENGINEER NURSE TO ADMINISTER LISPRO. ENDORSED FOR RITA.
[2017-10-15] MEDS ORDERED: INSULIN GLARGINE, 100 UNIT/ML CARTRIDGE SQ SCH (22:00)
[2017-10-15] MEDS: *INSULIN REGULAR(HUMULIN R)HUM 100 UNIT/ML VIAL SQ PRN (22:28)
[2017-10-16] VITALS (7 sets, daily range): BP systolic 91–141; BP diastolic 52–104
[2017-10-16] MEDS: ALBUTEROL FS 2.5 MG/0.5 ML VIAL.NEB NEB SCH ×4 (00:38→19:13)
[2017-10-16] MEDS: IPRATROPIUM NEB FS 0.5 MG/2.5 ML AMPUL.NEB NEB SCH ×4 (00:38→19:13)
[2017-10-16] MEDS: ACETAMINOPHEN 325 MG TABLET PO PRN (06:10)
[2017-10-16 07:16] LABS: BASOPHILS % (AUTO) 0.2 % (0.0-2.0); EOSINOPHILS % (AUTO) 0.5 % (0.0-6.0); HEMATOCRIT 31 % (39-51); HEMOGLOBIN 10.1 g/dL (13.5-17.5); LYMPHOCYTES # (AUTO) 0.9 /CMM (0.8-4.8); LYMPHOCYTES % (AUTO) 9.4 % (20.0-44.0); MEAN CORPUSCULAR HGB CONC 33 g/dl (31.0-36.0); MEAN CORPUSCULAR VOLUME 77 fL (80-96); MONOCYTES # (AUTO) 0.6 /CMM (0.1-1.30); MONOCYTES % (AUTO) 6.4 % (2.0-12.0); NEUTROPHILS # (AUTO) 8.3 /CMM (1.8-8.9); NEUTROPHILS % (AUTO) 83.5 % (43.0-81.0); PLATELET COUNT (AUTO) 197 /CMM (150-450); RDW COEFFICIENT OF VARIATION 17.9 (11.5-15.0); RED BLOOD CELL COUNT(AUTO) 3.98 MIL/uL (4.5-6.0); WHITE BLOOD COUNT (AUTO) 9.8 K/uL (4.3-11.0)
[2017-10-16 07:41] LABS: CALCIUM, SERUM 8.9 mg/dL (8.5-10.1); CREATININE 1.3 mg/dL (0.6-1.3); MAGNESIUM 2.3 mg/dL (1.8-2.4); PHOSPHORUS 3.1 mg/dL (2.5-4.9); POTASSIUM 3.7 mmol/L (3.5-5.1)
--- NOTE | 2017-10-16 08:00 | NUR ---
TELE1/RN AM SHIFT INITIAL NOTES RECEIVED PT AWAKE SITTING IN BED. PT A/O X 4, DENIES ANY SYMPTOMS AT THIS TIME. ON ROOM AIR SATURATING @ 93%, LUNG ROUNDS RHONCHI. ON TELE WITH SINUS RHYTHM WITH FIRST DEGREE AV BLOCK & BBB, HR. 78. IV SITE OCCLUDED, WILL PLACE NEW IV SITE. BLOOD GLUCOSE CHECKED, 220, NO S/S OF HYPERGLYCEMIA, WILL RECEIVED 8 UNITS OF REGULAR INSULIN PER SLIDING SCALE. PT IS COMFORTABLE, SCHEDULED AM MEDS TO BE GIVEN. CL WITHIN REACHED AND SAFETY MAINTAINED.
[2017-10-16] MEDS: BLOOD SUGAR DIAGNOSTIC 1 EACH STRIP IN SCH ×4 (08:22→22:00)
[2017-10-16] MEDS: INSULIN REGULAR, HUMAN 100 UNIT/ML 3 ML VIAL SQ PRN ×3 (08:25→17:26)
[2017-10-16] MEDS: ATORVASTATIN 40 MG TABLET PO SCH (08:26)
[2017-10-16] MEDS: methylPREDNISolone SOD SUCC 125 MG/2ML VIAL IV SCH (08:26)
[2017-10-16] MEDS: CARVEDILOL 12.5 MG TABLET PO SCH ×2 (08:26→17:00)
[2017-10-16] MEDS: FUROSEMIDE 20 MG TABLET PO SCH ×2 (08:26→21:07)
[2017-10-16] MEDS: GUAIFENESIN LA 600 MG TABLET.SA PO SCH ×2 (08:26→21:07)
[2017-10-16] MEDS: LISINOPRIL (10MG) 10 MG TABLET PO SCH (08:27)
[2017-10-16] MEDS: RIVAROXABAN 10 MG TABLET PO SCH (08:27)
[2017-10-16] MEDS: FLUTICASONE PROPIONATE 16 GM BOTTLE NS SCH (08:27)
[2017-10-16] MEDS: UREA 10% -AHA 4% CREAM 57 GM TUBE TP SCH ×2 (08:28→17:31)
[2017-10-16] MEDS ORDERED: SOD FERRIC GLUC 125 MG in IV NS 0.9% 100 ML IV SCH (14:00)
[2017-10-16] MEDS: LEVOFLOXACIN (500MG) 500 MG TABLET PO SCH (14:15)
--- NOTE | 2017-10-16 17:00 | NUR ---
MS1/RN AFTERNOON ROUNDS PT RESTING COMFORTABLY, NO ACUTE CHANGE OF CONDITION. MONITORING CONTINUED.
--- NOTE | 2017-10-16 19:51 | NUR ---
MS1/RN AM SHIFT END NOTES ALL NEEDS MET. NO ACUTE CHANGE OF CONDITION NOTED DURING THE SHIFT. PT IS STILL CONGESTED. PT ENDORSED TO PM NURSE TO CONTINUE CARE. CL WITHIN REACHED AND SAFETY MAINTAINED.
[2017-10-16] MEDS: *INSULIN REGULAR(HUMULIN R)HUM 100 UNIT/ML VIAL SQ PRN (21:14)
[2017-10-16] MEDS ORDERED: INSULIN GLARGINE, 100 UNIT/ML CARTRIDGE SQ SCH (22:00)
[2017-10-17] MEDS: ALBUTEROL FS 2.5 MG/0.5 ML VIAL.NEB NEB SCH (00:47)
[2017-10-17] MEDS: IPRATROPIUM NEB FS 0.5 MG/2.5 ML AMPUL.NEB NEB SCH (00:48)
[2017-10-17 04:00] VITALS: BP 127/69
--- NOTE | 2017-10-17 07:15 | NUR ---
ms rn initial notes Received patient in bed, awake, head of bed elevated, no SOB or distress noted, on room air at this time and tolerated well. Alert and oriented x 4, verbally responsive and able to make needs known. IV intact and patent HL only. Ambulatory, call light with in patient reach, will continue to monitor accordingly.
[2017-10-17] MEDS: BLOOD SUGAR DIAGNOSTIC 1 EACH STRIP IN SCH ×2 (07:52→12:36)
[2017-10-17] MEDS: INSULIN REGULAR, HUMAN 100 UNIT/ML 3 ML VIAL SQ PRN ×2 (07:54→12:37)
[2017-10-17 08:00] VITALS: BP 136/75
[2017-10-17] MEDS: GUAIFENESIN LA 600 MG TABLET.SA PO SCH (08:22)
[2017-10-17] MEDS: ATORVASTATIN 40 MG TABLET PO SCH (08:22)
[2017-10-17] MEDS: FUROSEMIDE 20 MG TABLET PO SCH (08:22)
[2017-10-17] MEDS: RIVAROXABAN 10 MG TABLET PO SCH (08:23)
[2017-10-17] MEDS: methylPREDNISolone SOD SUCC 125 MG/2ML VIAL IV SCH (08:23)
[2017-10-17 08:24] VITALS: BP 136/75
[2017-10-17] MEDS: LISINOPRIL (10MG) 10 MG TABLET PO SCH (08:24)
[2017-10-17] MEDS: CARVEDILOL 12.5 MG TABLET PO SCH (08:24)
[2017-10-17] MEDS: FLUTICASONE PROPIONATE 16 GM BOTTLE NS SCH (08:25)
[2017-10-17] MEDS: UREA 10% -AHA 4% CREAM 57 GM TUBE TP SCH (08:26)
[2017-10-17 08:30] LABS: BASOPHILS % (AUTO) 0.3 % (0.0-2.0); EOSINOPHILS % (AUTO) 0.2 % (0.0-6.0); HEMATOCRIT 33 % (39-51); HEMOGLOBIN 10.7 g/dL (13.5-17.5); LYMPHOCYTES # (AUTO) 1.2 /CMM (0.8-4.8); LYMPHOCYTES % (AUTO) 14.8 % (20.0-44.0); MEAN CORPUSCULAR HGB CONC 33 g/dl (31.0-36.0); MEAN CORPUSCULAR VOLUME 77 fL (80-96); MONOCYTES # (AUTO) 0.7 /CMM (0.1-1.30); MONOCYTES % (AUTO) 8.1 % (2.0-12.0); NEUTROPHILS # (AUTO) 6.1 /CMM (1.8-8.9); NEUTROPHILS % (AUTO) 76.6 % (43.0-81.0); PLATELET COUNT (AUTO) 199 /CMM (150-450); RDW COEFFICIENT OF VARIATION 16.9 (11.5-15.0); RED BLOOD CELL COUNT(AUTO) 4.24 MIL/uL (4.5-6.0)
[2017-10-17 08:33] LABS: CALCIUM, SERUM 9.1 mg/dL (8.5-10.1); CREATININE 1.4 mg/dL (0.6-1.3); MAGNESIUM 2.2 mg/dL (1.8-2.4); PHOSPHORUS 3.1 mg/dL (2.5-4.9); POTASSIUM 3.6 mmol/L (3.5-5.1)
[2017-10-17] MEDS: ACETAMINOPHEN 325 MG TABLET PO PRN (11:37)
[2017-10-17] MEDS: LEVOFLOXACIN (500MG) 500 MG TABLET PO SCH (12:36)
[2017-10-17] MEDS ORDERED: METH4TAB17 PO (13:14)
[2017-10-17] MEDS ORDERED: LEVO500T2 PO (13:14)
[2017-10-17] MEDS ORDERED: GLIP5TAB13 PO (13:14)
[2017-10-17] MEDS ORDERED: ALBU2.5V38 IH (13:14)
[2017-10-17] MEDS ORDERED: FLUT1DIS5 IH (13:14)
[2017-10-17] MEDS ORDERED: GUAI600T53 PO (13:14)
--- NOTE | 2017-10-17 16:00 | NUR ---
ms wax pattern coater notes discharge instructions given to patient and able ot understand instructions. Signed discharge paper and belonging list and no items missing. Flu and pneumonia vaccine not given, patient already received vaccinations elsewhere as patient verbalized. Skin in intact picture of the right toe in the chart taken by shift supervisor film processing RN. Discontinued IV and pressured applied to prevent patient from bleeding. No complaint of pain or discomfort at this time, nor chest pain. Health teaching and education rendered. Informed about following up with primary health care physician in 1-2 weeks. Patient left the hospital in stable condition accompanied by RN assigned and montse hernandez wheelchair.
== END 2017-10-17 16:04 | disposition home or self-care (01) | DRG 291 ==
LOC: ER 23:21 → ICU 23:58 → TELE1 10-15 05:24 → MEDSG1 10-16 10:07
PROVIDERS: ADMIT Internal Medicine; ATTEND Internal Medicine
PROC: 5A09357 Assistance with Respiratory Ventilation, Less than 24 Consecutive Hours, Continuous Positive Airway Pressure (ICD-10-PCS; principal; 2017-10-13)
DX: I11.0 Hypertensive heart disease with heart failure (principal); J96.21 Acute and chronic respiratory failure with hypoxia; N17.0 Acute kidney failure with tubular necrosis; J44.1 Chronic obstructive pulmonary disease with (acute) exacerbation; J44.0 Chronic obstructive pulmonary disease with (acute) lower respiratory infection; E87.1 Hypo-osmolality and hyponatremia; I50.23 Acute on chronic systolic (congestive) heart failure; E11.65 Type 2 diabetes mellitus with hyperglycemia; E78.5 Hyperlipidemia, unspecified; I48.91 Unspecified atrial fibrillation; K21.9 Gastro-esophageal reflux disease without esophagitis; L60.3 Nail dystrophy; Z79.01 Long term (current) use of anticoagulants; Z99.81 Dependence on supplemental oxygen; Z87.891 Personal history of nicotine dependence; E66.01 Morbid (severe) obesity due to excess calories; D50.9 Iron deficiency anemia, unspecified; G47.33 Obstructive sleep apnea (adult) (pediatric); Z68.32 Body mass index [BMI] 32.0-32.9, adult; R23.4 Changes in skin texture; L84 Corns and callosities; J20.9 Acute bronchitis, unspecified; Z79.4 Long term (current) use of insulin
CPT/HCPCS: 36415; 36600; 71045-TC; 80048-TC; 80053-TC; 80061-TC; 80076-TC; 82803-TC; 82945-TC; 82962-TC; 83540-TC; 83605-TC; 83735-TC; 83880; 84100-TC; 84443-TC; 84484-TC; 85025-TC; 85730-TC; 87040-TC; A4606; J1815; J1940; J2916; J2930; J7030; Z7610

== ENCOUNTER 2017-10-20 10:44 | Outpatient (CLI) | payer MEDICARE, OTHER ==
[~2017-10-20 10:44] MED LIST changes: +GLIP5TAB13 PO; +GUAI600T53 PO; +LEVO500T2 PO; +METH4TAB17 PO
[2017-10-20 10:51] VITALS: BP 112/60
== END 2017-10-20 23:59 | disposition home or self-care (01) ==
LOC: MSC 10:44
PROVIDERS: ATTEND Internal Medicine
DX: J44.9 Chronic obstructive pulmonary disease, unspecified (principal); Z87.891 Personal history of nicotine dependence; I13.0 Hypertensive heart and chronic kidney disease with heart failure and stage 1 through stage 4 chronic kidney disease, or unspecified chronic kidney disease; I50.22 Chronic systolic (congestive) heart failure; N18.9 Chronic kidney disease, unspecified; E11.22 Type 2 diabetes mellitus with diabetic chronic kidney disease; Z79.4 Long term (current) use of insulin; I48.91 Unspecified atrial fibrillation; Z79.01 Long term (current) use of anticoagulants; J96.11 Chronic respiratory failure with hypoxia; Z99.81 Dependence on supplemental oxygen